=== PATIENT | female | born 1940 | race Two or more races ===

== ENCOUNTER 2025-03-08 10:02 | Inpatient (IN) | payer OTHER ==
[2025-03-08] VITALS (25 sets, daily range): BP systolic 101–124; BP diastolic 40–55; PULSE 69–90; RESP 10–22; TEMP 98.3–99.4; O2SAT 95–100
[~2025-03-08] VITALS: Ht 167.6 cm; Wt 74.5 kg
[2025-03-08] MEDS: LACTATED RINGER'S 1,700 ML IV ONE (10:30)
[2025-03-08] MEDS: VANCOMYCIN 1GM/200ML PM 200 ML IV ONE (10:30)
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
--- NOTE | 2025-03-08 11:05 | DVH ---
CHEST RADIOGRAPH Indication: weakness Technique: Single frontal view of the chest was obtained COMPARISON: None FINDINGS: Lines and Tubes: Right chest port in satisfactory position Lungs: Clear Pleura: No effusion. No pneumothorax. Cardiomediastinal contours: Unremarkable Bones: Unremarkable IMPRESSION: No acute disease.
[2025-03-08] MEDS: CEFEPIME 1GM/ 50ML 50 ML IV ONE (11:15)
[2025-03-08 11:23] LABS: Alanine Aminotransferase 10 U/L (7-40); Albumin 3.4 g/dL (3.2-4.8); Anion Gap 12 (5-15); BUN/Creatinine Ratio 33.9 (10.0-20.0); Bilirubin, Total 0.9 mg/dL (0.2-1.0); Blood Urea Nitrogen 20 mg/dL (9-23); Carbon Dioxide 22 mmol/L (20-31); Chloride 105 mmol/L (98-107); Potassium 4.0 mmol/L (3.5-5.1); Sodium 139 mmol/L (136-145)
[2025-03-08 11:24] LABS: Alkaline Phosphatase 125 U/L (46-116); Calcium 8.2 mg/dL (8.7-10.4); Glucose 139 mg/dL (74-106); Total Protein 4.8 g/dL (5.7-8.2)
[2025-03-08 11:31] LABS: Lactic Acid w/Reflex 3.1 mmol/L (0.4-2.0)
--- NOTE | 2025-03-08 12:03 | DVH ---
EXAM: CT HEAD WITHOUT CONTRAST INDICATION: Hypotension TECHNIQUE: CT of the head without intravenous contrast. Coronal and sagittal reformatted images are s ubmitted. Radiation Dose : 1. Head: CT Dose: CTDI volume is 51.5 mGy. Dose-length product is 1013.6 mGy*cm The dose indicators for CT are the volume Computed Tomography (CT) Dose Index (CTDIvol) and the Dose Length Product (DLP), and are measured in units of mGy and mGy-cm, respectively. These indicators are not patient dose, but values generated from the CT scanner acquisition factors. The report includes radiation exposure data for exposures received during this examination. All CT scans at this medical facility are performed using dose modulation techniques as appropriate to a performed exam including the following: Automated exposure control was utilized; adjustment of the MA and/or KV according to patient size; and use of iterative reconstruction technique. COMPARISON: None FINDINGS: There is no evidence of acute intracranial hemorrhage, extra-axial collection, mass effect, midline s hift, herniation or hydrocephalus. 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 The ventricles, sulci and cisterns are age appropriate. The snowden-white differentiation is intact. The visualized paranasal sinuses and mastoid air cells are clear. No depressed calvarial fracture. The surrounding soft tissues are unremarkable. IMPRESSION: 1. No acute intracranial abnormality. 2. 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 MRI of the brain without and wit h intravenous contrast with MRA brain is suggested for further evaluation.
[2025-03-08] MEDS: NOREPINEPHRINE 8 MG/250ML KIT 250 ML IV SCH (13:00)
[2025-03-08 13:31] LABS: Hematocrit 17.6 % (36.0-46.0); Mean Corpuscular Hemoglobin 31.6 pg (28.0-32.0); Mean Corpuscular Volume 94.6 fL (80.0-100.0)
[2025-03-08 13:36] LABS: Hemoglobin 5.9 g/dL (12.2-16.2)
[2025-03-08 13:42] LABS: INR 1.34 (0.9-1.15); Partial Thromboplastin Time 25.7 SEC (24.5-34.5); Prothrombin Time 13.8 sec (9.3-11.8)
[2025-03-08 14:14] LABS: Total Cells Counted 100.0 (100)
[2025-03-08] MEDS: HYDROcodone-ACET 10/325MG TAB PO ONE (15:00)
[2025-03-08] MEDS ORDERED: ASPI1TAB20 PO (15:55)
[2025-03-08] MEDS ORDERED: ATOR20TA50 PO (15:55)
[2025-03-08] MEDS ORDERED: SENN8.6T83 PO (15:55)
[2025-03-08] MEDS ORDERED: METO-159 PO (15:55)
[2025-03-08] MEDS ORDERED: DEX4T PO (15:55)
[2025-03-08] MEDS ORDERED: HYDR-4072 PO (15:55)
[2025-03-08] MEDS ORDERED: VER240ST PO (15:57)
[2025-03-08] MEDS ORDERED: ACETAMINOPHEN 325 MG TAB PO PRN (16:00)
[2025-03-08] MEDS ORDERED: DOCUSATE SOD 100 MG CAP PO PRN (16:00)
[2025-03-08] MEDS ORDERED: NITROGLYCERIN 0.4 MG SL TAB SL PRN (16:00)
[2025-03-08] MEDS ORDERED: MORPHINE SULFATE INJ 2 MG/ml SYRG IV PRN ×2 (16:00)
--- NOTE | 2025-03-08 16:42 | DVHHP2 ---
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 Patient states she last received chemotherapy on Thursday02/27/2025. Since then she has been progressively worsening. She has been experiencing intermittent diarrhea, that she has been self treating with over the counter medications. She has also been becoming progressively weaker and having a hard time getting out of bed due to weakness and her left hip injury. Last night she began having severe diarrhea and noticed there was blood in her stool. Her daughter helped her to get cleaned up, but ended up calling EMS due to the patient feeling dizzy, weak, and having a low BP. Patient was scheduled to go to [facility] for pre-op testing today to have surgery on Thursday to fix her left hip. Heme/Onc: Cancer (breast with mets to bone) Past Surgical History: Hysterectomy, Mastectomy (left), Other (Left hip x 2, Left arm, right arm), Total knee replacement (right) Smoke: No ALCOHOL: none Drugs: None Lives: Alone (has family there with her almost all day) Domestic Violence: Neg Review of Systems Constitutional: Yes: Weakness, Malaise; No: Fever, Chills, Sweats, Other Eyes: No: Pain, Vision change, Conjunctivae inflammation, Eyelid inflammation, Other, Redness ENT: No: Ear pain, Ear discharge, Nose pain, Nose discharge, Nose congestion, Mouth pain, Mouth swelling, Throat pain, Throat swelling, Other Respiratory: No: Cough, Dry, Shortness of breath, SOB with excertion, Wheezing, Hemoptysis, Pleuritic Pain, Sputum, Wheezing, Other Cardiovascular: No: Chest Pain, Palpitations, Orthopnea, Paroxysmal Noc. Dyspnea, Edema, Lt Headedness, Other Gastrointestinal: Diarrhea, Melena; No: Nausea, Vomiting, Abdominal Pain, Constipation, Hematochezia, Other Genitourinary: No Dysuria, No Frequency, No Incontinence, No Hematuria, No Retention, No Other Musculoskeletal: No: other, neck pain, shoulder pain, arm pain, back pain, hand pain, leg pain, foot pain Skin: No: Rash, Lesions, Jaundice, Bruising, Other Neurological: No: Weakness, Numbness, Incoordination, Change in speech, Confusion, Seizures, Other Allergies: Coded Allergies: Morphine (Verified Allergy, Unknown, 03/08/25) Medications Current Medications Medications Dose Ordered Sig/Emigdio Route Start Time Stop Time Status Last Admin Dose Admin Cefepime HCl 50 ml @ 12.5 mls/hr Q12HR IV 03/08/25 22:00 Norepinephrine Bitartrate 250 ml @ 3.75 mls/hr Q24H IV 03/08/25 12:45 Ondansetron HCl 4 mg Q4HP PRN IV 03/08/25 16:00 UNV Docusate Sodium 100 mg BIDPRN PRN PO 03/08/25 16:00 UNV Acetaminophen 650 mg Q6HP PRN PO 03/08/25 16:00 UNV Morphine Sulfate 2 mg Q4HPRN PRN IV 03/08/25 16:00 UNV Nitroglycerin 0.4 mg Q5MINP PRN SL 03/08/25 16:00 UNV Morphine Sulfate 2 mg Q30M PRN IV 03/08/25 16:00 UNV Atorvastatin Calcium 20 mg HS PO 03/08/25 22:00 UNV Dexamethasone 16 mg HS PO 03/08/25 22:00 UNV Acetaminophen/ Hydrocodone Bitart 1 tab Q12HP PRN PO 03/08/25 16:00 UNV Exam Vital Signs Vital Signs Date Time Temp Pulse Resp B/P (MAP) Pulse Ox O2 Delivery O2 Flow Rate FiO2 03/08/25 13:13 80 18 88/32 (50) 100 03/08/25 11:15 98.7 98.7 03/08/25 10:54 Nasal Cannula* 2 28 General Appearance: Alert, Oriented X3, Cooperative, mild distress HEENT: Atraumatic, PERRLA Respiratory: Clear to auscultation, Normal air movement Cardiovascular: Regular rate, Normal S1, Normal S2, Other (hypootensive-on Levophed, right chest port a cath) Abdominal: Normal bowel sounds, Soft, No tenderness Extremities: No clubbing, No cyanosis, No edema, Normal pulses, No tenderness/swelling Skin: No rashes, No breakdown, No significant lesion Neuro: Normal speech, Other (Generalized weakness ) Psych/Mental Status: Mental status NL, Mood NL Labs/Xrays Labs Test 03/08/25 13:11 03/08/25 10:41 03/08/25 10:36 Range/Units White Blood Count 19.9 H 4.4-10.8 10^3/uL Red Blood Count 1.86 L 4.0-5.20 10^6/uL Hemoglobin 5.9 *L 12.2-16.2 g/dL Hematocrit 17.6 L 36.0-46.0 % Mean Corpuscular Volume 94.6 80.0-100.0 fL Mean Corpuscular Hemoglobin 31.6 28.0-32.0 pg Mean Corpuscular Hemoglobin Concent 33.4 32.0-36.0 g/dL Red Cell Distribution Width 14.9 H 11.8-14.3 % Platelet Count 137 L 140-450 10^3/uL Mean Platelet Volume 8.7 6.9-10.8 fL Neutrophils (%) (Auto) 37.0-80.0 % Lymphocytes (%) (Auto) 10.0-50.0 % Monocytes (%) (Auto) 0.0-12.0 % Basophils (%) (Auto) 0.0-2.0 % Neutrophils # (Auto) 1.6-8.6 10 ^3/uL Lymphocytes # (Auto) 0.4-5.4 10 ^3/uL Monocytes # (Auto) 0-1.3 10 ^3/uL Differential Total Cells Counted 100.0 100 Neutrophils % (Manual) 81 H 37.0-80.0 Band Neutrophils % (Manual) 11 Lymphocytes % (Manual) 4 L 10.0-50.0 Monocytes % (Manual) 3 0-12 Eosinophils % (Manual) 0 0-7 Basophils % (Manual) 0 0.0-2.0 Metamyelocytes % (manual) 1 Myelocytes % (Manual) 0 Promyelocytes % (Manual) 0 Blast Cells % (Manual) 0 Reactive Lymphocytes 0 Platelet Estimate Decreased Prothrombin Time 13.8 H 9.3-11.8 sec Prothrombin Time INR 1.34 H 0.9-1.15 Activated Partial Thromboplast Time 25.7 24.5-34.5 SEC Lactic Acid Level 1.3 0.4-2.0 mmol/L POC Glucose 140 H 70-106 mg/dl Sodium Level 139 136-145 mmol/L Potassium Level 4.0 3.5-5.1 mmol/L Chloride Level 105 98-107 mmol/L Carbon Dioxide Level 22 20-31 mmol/L Anion Gap 12 5-15 Blood Urea Nitrogen 20 9-23 mg/dL Creatinine 0.59 0.550-1.02 mg/dL Glomerular Filtration Rate Calc 90 >90 mL/min BUN/Creatinine Ratio 33.9 H 10.0-20.0 Serum Glucose 139 H 74-106 mg/dL Calcium Level 8.2 L 8.7-10.4 mg/dL Total Bilirubin 0.9 0.2-1.0 mg/dL Aspartate Amino Transferase (AST) 25 13-40 U/L Alanine Aminotransferase (ALT) 10 7-40 U/L Alkaline Phosphatase 125 H 46-116 U/L Total Protein 4.8 L 5.7-8.2 g/dL Albumin 3.4 3.2-4.8 g/dL CHEST RADIOGRAPH FINDINGS: Lines and Tubes: Right chest port in satisfactory position Lungs: Clear Pleura: No effusion. No pneumothorax. Cardiomediastinal contours: Unremarkable Bones: Unremarkable IMPRESSION: No acute disease. EXAM: CT HEAD WITHOUT CONTRAST FINDINGS: There is no evidence of acute intracranial hemorrhage, extra-axial collection, mass effect, midline shift, herniation or hydrocephalus. 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 The ventricles, sulci and cisterns are age appropriate. The snowden-white differentiation is intact. The visualized paranasal sinuses and mastoid air cells are clear. No depressed calvarial fracture. The surrounding soft tissues are unremarkable. IMPRESSION: 1. No acute intracranial abnormality. 2. 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 MRI of the brain without and with intravenous contrast with MRA brain is suggested for further evaluation. SEPSIS Sepsis Screen Date sepsis recognized/suspect: Mar 08, 2025 Time Sepsis recognized/suspect: 1005 Recent Procedure: No On Antibiotic Therapy: No Respiratory Rate >20: No Heart Rate >90: Yes Temp<36 C (96.8 F) or >38.3 C: No SBP <90 or MAP <65 mmHG: Yes New Acute Mental Status Change: No Is the patient on CPAP, BIPAP,: No Physician Orders Urinalysis (03/08/25 10:12) Chest Portable (03/08/25 10:12) Accucheck (03/08/25 10:12) Blood Culture (03/08/25 10:12) Cefepime 1gm/ 50ml (Maxipime 1gm/50ml) (03/08/25 22:00) Notify Md If Map <65 Or Bp<90 (03/08/25 10:12) If Map<65 Start Vasopressor (03/08/25 10:12) Sepsis Reassesment After Fluid (03/08/25 11:12) Electrocardigram (03/08/25 10:29) Head Without Contrast (03/08/25 11:15) Norepinephrine 8 Mg/250ml Kit (Levophed) (03/08/25 12:45) Type And Screen (03/08/25 13:38) Admit (03/08/25 15:46) Code Status (03/08/25 15:46) Ondansetron Hcl (Zofran) (03/08/25 16:00) Docusate Sodium Capsule (Colace Capsule) (03/08/25 16:00) Fall Risk Precautions In Place QSHIFT (03/08/25 15:46) Complete Blood Count (03/09/25 04:00) Comprehensive Metabolic Panel (03/09/25 04:00) Condition: Critical (03/08/25 15:46) Acetaminophen Tablet (Tylenol Tablet) (03/08/25 16:00) Morphine Sulfate Injection (03/08/25 16:00) Nitroglycerin Sublingual (Ntrostat Subli (03/08/25 16:00) Morphine Sulfate Injection (03/08/25 16:00) Stat Ekg For Chest Pain (03/08/25 15:46) Notify Md Of Changes From Base (03/08/25 15:46) Coding Machine Operator For 24 Hours (03/08/25 15:46) Emergency Dysrhythmia Protocol (03/08/25 15:46) Rhythm Strips Once Every Shift (03/08/25 15:46) Oxygen By Nasal Cannula (03/08/25 15:46) Regular Diet (03/08/25 Dinner) Stool Occult Blood (03/08/25 15:46) * Gi Dvh Finisher Hot Strip (03/08/25 15:46) Atorvastatin (Lipitor) (03/08/25 22:00) Dexamethasone Tablet (Decadron Tablet) (03/08/25 22:00) Hydrocodone-Acet 10/325mg Tab ([place] 10/ (03/08/25 16:00) Vital Signs Date Time Temp Pulse Resp B/P (MAP) Pulse Ox O2 Delivery O2 Flow Rate FiO2 03/08/25 13:13 80 18 88/32 (50) 100 03/08/25 13:00 79 18 93/46 (62) 100 03/08/25 12:00 82 03/08/25 11:28 94/43 (60) 03/08/25 11:15 98.7 81 15 98/36 (56) 100 98.7 03/08/25 10:54 84 10 95 Nasal Cannula* 2 28 03/08/25 10:50 98.5 84 10 89/40 (56) 93 98.5 03/08/25 10:23 97.9 97 16 76/45 97 97.9 03/08/25 10:10 99 Laboratory Tests Test 03/08/25 10:36 03/08/25 13:11 Lactic Acid Level 3.1 mmol/L (0.4-2.0) *H 1.3 mmol/L (0.4-2.0) White Blood Count 19.9 10^3/uL (4.4-10.8) H Medications Medications Dose Ordered Sig/Emigdio Route Start Time Stop Time Status Last Admin Dose Admin Cefepime HCl 50 ml @ 50 mls/hr ONCE ONCE IV 03/08/25 10:45 03/08/25 11:44 DC 03/08/25 11:15 50 MLS/HR Lactated Ringer's 1,700 ml @ 1,700 mls/hr ONCE ONCE IV 03/08/25 10:15 03/08/25 11:14 DC 03/08/25 10:30 1,700 MLS/HR Vancomycin HCl 200 ml @ 200 mls/hr ONCE ONCE IV 03/08/25 10:15 03/08/25 11:14 DC 03/08/25 10:30 200 MLS/HR Assessment/Plan Assessment/Plan Assessment: Severe anemia, Hypotension, Possible GI bleed, Leukocytosis, Cancer, Plan: Admit to ICU, GI consult, Transfuse 2 units PRBC, Manage/Monitor H&H closely, Vasopressors as needed, IV hydration, Stool for occult blood, Home medications reconciled, Plan discussed with: Patient, Daughter My Orders Orders - JAMES RICHARDS MANAGER ENVIRONMENTAL AFFAIRS Procedure Category Date Status Time Admit ADMIT 03/08/25 Transmitted 15:46 Code Status CODE 03/08/25 Transmitted 15:46 Ondansetron Hcl [facility] 03/08/25 Logged (Zofran) 16:00 Docusate Sodium [facility] 03/08/25 Logged Capsule (Colace 16:00 Fall Risk Precautions [facility] 03/08/[address] 15:46 Complete Blood Count LAB 03/09/25 Verified 04:00 Comprehensive LAB 03/09/25 Verified Metabolic Panel 04:00 Condition: Critical [facility] 03/08/25 In Process 15:46 Acetaminophen Tablet [facility] 03/08/25 Logged (Tylenol Tablet) 16:00 Morphine Sulfate [facility] 03/08/25 Logged Injection 16:00 Nitroglycerin [facility] 03/08/25 Logged Sublingual (Ntrostat 16:00 Morphine Sulfate [facility] 03/08/25 Logged Injection 16:00 Stat Ekg For Chest [facility] 03/08/25 In Process Pain 15:46 Notify Of Changes [facility] 03/08/25 In Process From Base 15:46 Coding Machine Operator For [facility] 03/08/25 In Process 24 Hours 15:46 Emergency Dysrhythmia [facility] 03/08/25 In Process Protocol 15:46 Rhythm Strips Once [facility] 03/08/25 In Process Every Shift 15:46 Oxygen By Nasal RT 03/08/25 Transmitted Cannula 15:46 Regular Diet DIET 03/08/25 Transmitted Dinner Stool Occult Blood LAB 03/08/25 Logged 15:46 * Gi Dvh Finisher Hot Strip CONS 03/08/25 Transmitted 15:46 Atorvastatin (Lipitor) [facility] 03/08/25 Logged 22:00 Dexamethasone Tablet [facility] 03/08/25 Logged (Decadron Tablet) 22:00 Hydrocodone-Acet [facility] 03/08/25 Logged 10/325mg Tab ([place] 16:00 Date of Service: Mar 08, 2025 Billing Provider: JAMES RICHARDS Common Visit Codes: [id number] INP/OBS CARE (MOD) JAMES RICHARDS MANAGER ENVIRONMENTAL AFFAIRS Mar 08, 2025 16:42
[2025-03-08 16:46] LABS: Urine Protein, UAD 1+ (Negative)
[2025-03-08] MEDS: ATORVASTATIN 20 MG TAB PO SCH (21:22)
[2025-03-08] MEDS: HYDROcodone-ACET 10/325MG TAB PO PRN (22:03)
[2025-03-08] MEDS: CEFEPIME 1GM/ 50ML 50 ML IV SCH (22:03)
[2025-03-09] VITALS (103 sets, daily range): BP systolic 86–137; BP diastolic 36–69; PULSE 64–171; RESP 10–22; TEMP 97–99.1; O2SAT 99–100
[2025-03-09 02:15] LABS: Hematocrit 25.6 % (36.0-46.0); Hemoglobin 8.8 g/dL (12.2-16.2); Mean Corpuscular Hemoglobin 31.2 pg (28.0-32.0); Mean Corpuscular Volume 90.8 fL (80.0-100.0)
[2025-03-09 02:26] LABS: Albumin 3.2 g/dL (3.2-4.8); Anion Gap 7 (5-15); BUN/Creatinine Ratio 25.8 (10.0-20.0); Carbon Dioxide 25 mmol/L (20-31); Chloride 106 mmol/L (98-107); Sodium 138 mmol/L (136-145)
[2025-03-09 02:30] LABS: Total Cells Counted 100.0 (100)
[2025-03-09 02:32] LABS: Alanine Aminotransferase 9 U/L (7-40); Alkaline Phosphatase 124 U/L (46-116); Bilirubin, Total 1.3 mg/dL (0.2-1.0); Blood Urea Nitrogen 8 mg/dL (9-23); Calcium 7.6 mg/dL (8.7-10.4); Glucose 139 mg/dL (74-106); Potassium 3.2 mmol/L (3.5-5.1); Total Protein 4.8 g/dL (5.7-8.2)
[2025-03-09] MEDS: POTASSIUM CHL 20 Meq TABLET PO ONE (05:32)
[2025-03-09] MEDS: POTASSIUM EFFERVESENT TAB 25 MEQ PO ONE (05:49)
[2025-03-09] MEDS: METOPROLOL TARTRATE 1MG/1ML-5ML VIAL IV ONE ×3 (12:27→14:24)
[2025-03-09] MEDS: AMIODARONE 360mg/200mL PREMIX 200 ML IV ONE (12:28)
[2025-03-09] MEDS: AMIODARONE BOLUS KIT 100 ML IV ONE (12:28)
--- NOTE | 2025-03-09 13:58 | DVHPN2 ---
Subjective 84-year-old female with a history of breast cancer metastatic to the bone came with chief complaint of rectal bleeding She was tachycardic She was anemic with a hemoglobin of 5.9 and was given 2 units of blood which raised the 28.8 today She was tachycardic this morning heart rate 170 she was given metoprolol IV and started on amiodarone IV and IV fluids Currently heart rate is 150 Changes from previous H/P or p: Changes Eyes: No Pain, No Vision change, No Conjunctivae inflammation, No Eyelid inflammation, No Other, No Redness ENT: No Ear pain, No Ear discharge, No Nose pain, No Nose discharge, No Nose congestion, No Mouth pain, No Mouth swelling, No Throat pain, No Throat swelling, No Other Cardiovascular: No Chest Pain, No Palpitations, No Orthopnea, No Paroxysmal Noc. Dyspnea, No Edema, No Lt Headedness, No Other Respiratory: No Cough, No Dry, No Shortness of breath, No SOB with excertion, No Wheezing, No Hemoptysis, No Pleuritic Pain, No Sputum, No Other Gastrointestinal: No Nausea, No Vomiting, No Abdominal Pain; Diarrhea; No Constipation; Melena; No Hematochezia, No Other Genitourinary: No Dysuria, No Frequency, No Incontinence, No Hematuria, No Retention, No Other Musculoskeletal: No other, No neck pain, No shoulder pain, No arm pain, No back pain, No hand pain, No leg pain, No foot pain Skin: No Rash, No Lesions, No Jaundice, No Bruising, No Other Objective Vitals Vital Signs Date Time Temp Pulse Resp B/P (MAP) Pulse Ox O2 Delivery O2 Flow Rate FiO2 03/09/25 13:00 85 17 109/56 (73) 100 03/09/25 11:45 98.3 98.3 03/09/25 08:00 Nasal Cannula* 2 28 Intake/Output Intake and Output 03/09/25 06:59 Intake Total 3526.28 ml Output Total 0 ml Balance 3526.28 ml Intake Oral 375 ml IV Total 2251.28 ml Blood Product 600 ml Other 300 ml Output Urine Total 0 ml # Voids 3 General Appearance: Alert, Oriented X3, Cooperative, No acute distress Lungs: Clear to auscultation Chest/Breasts: Discharge, Lesions, Lumps Cardiovascular: Regular rate, Normal S1, Normal S2, Other (Tachycardic) Extremities: No edema Medications Current Medications Medications Dose Ordered Sig/Emigdio Route Start Time Stop Time Status Last Admin Dose Admin Cefepime HCl 50 ml @ 12.5 mls/hr Q12HR IV 03/08/25 22:00 03/09/25 09:09 12.5 MLS/HR Norepinephrine Bitartrate 250 ml @ 3.75 mls/hr Q24H IV 03/08/25 12:45 03/09/25 04:21 7.5 MLS/HR Ondansetron HCl 4 mg Q4HP PRN IV 03/08/25 16:00 Docusate Sodium 100 mg BIDPRN PRN PO 03/08/25 16:00 Acetaminophen 650 mg Q6HP PRN PO 03/08/25 16:00 Morphine Sulfate 2 mg Q4HPRN PRN IV 03/08/25 16:00 Hold Nitroglycerin 0.4 mg Q5MINP PRN SL 03/08/25 16:00 Morphine Sulfate 2 mg Q30M PRN IV 03/08/25 16:00 Hold Atorvastatin Calcium 20 mg HS PO 03/08/25 22:00 03/08/25 21:22 20 MG Dexamethasone 16 mg HS PO 03/08/25 22:00 03/08/25 21:22 16 MG Acetaminophen/ Hydrocodone Bitart 1 tab Q12HP PRN PO 03/08/25 16:00 03/09/25 11:11 1 TAB Sodium Chloride 1,000 ml @ 100 mls/hr Q10H IV 03/09/25 13:00 UNV Laboratory Results Laboratory Tests 03/09/25 01:31 Chemistry Test 03/09/25 01:31 Albumin 3.2 g/dL (3.2-4.8) Calcium Level 7.6 mg/dL (8.7-10.4) L Total Protein 4.8 g/dL (5.7-8.2) L LFT Test 03/09/25 01:31 Alanine Aminotransferase (ALT) 9 U/L (7-40) Alkaline Phosphatase 124 U/L (46-116) H Aspartate Amino Transferase (AST) 20 U/L (13-40) Total Bilirubin 1.3 mg/dL (0.2-1.0) H Urinalysis Test 03/08/25 13:15 Urine Color Light-yellow (Yellow) Urine Clarity Turbid (Clear) H Urine pH 6.0 (5.0-9.0) Urine Specific [employer] 1.024 (1.001-1.035) Urine Protein 1+ (Negative) H Urine Ketones 1+ (Negative) H Urine Blood 2+ /uL (Negative) H Urine Nitrite Negative (Negative) Urine Bilirubin Negative (Negative) Urine Urobilinogen Normal mg/dL (Negative) Urine Leukocyte Esterase 1+ /uL (Negative) Urine RBC 15 /hpf (0 - 4) Urine Microscopic WBC 69 /HPF (0-5) H Urine Squamous Epithelial Cells Few /hpf (<5) Urine Bacteria None seen /hpf (None Seen) Urine Glucose 1+ mg/dL (Normal) H Microbiology Microbiology Date/Time Source Procedure Growth Status 03/09/25 06:10 Nose MRSA Screen - Final Complete 03/08/25 10:36 Blood Blood Culture - Preliminary NO GROWTH AFTER 24 HOURS OF INCUBATION. Resulted Assessment/Plan Assessment/Plan Rectal bleeding Acute anemia Rule out sepsis Breast cancer metastatic to the bone Supraventricular tachycardia Possible septic shock Leukocytosis Hypotension Hypokalemia Plan The patient was transfuse 2 units RBCs Keep in ICU Bolus IV fluids and normal saline maintenance IV fluids Levophed as needed Give a 2nd dose of metoprolol IV 5 mg Restart her home medications metoprolol and verapamil Cardiology consult Echocardiogram GI consult Broad-spectrum IV antibiotics Continue dexamethasone home dose [place] p.r.n[employer] for the pain Replace potassium as needed Full code Discussed with the daughter at the bedside Advance directives discussed for 19 minutes Plan discussed with: Patient My Orders Orders - DAWIT HASSAN MD Procedure Category Date Status Time * Cardiology Consult CONS 03/09/25 Transmitted 12:21 Sodium Chloride 0.9% PHA 03/09/25 Logged 13:00 Metoprolol Inj PHA 03/09/25 Logged (Lopressor) 13:45 Date of Service: Mar 09, 2025 Billing Provider: DAWIT HASSAN MD Common Visit Codes: [id number] CARE 30-74 MIN Secondary Visit Codes: [id number] CARE PLAN 30 MINUTES DAWIT HASSAN MD Mar 09, 2025 13:58
[2025-03-09] MEDS: SODIUM CHLORIDE 0.9% 1,000 ML IV SCH (14:00)
--- NOTE | 2025-03-09 14:19 | DVHINCON2 ---
Date Seen: Mar 09, 2025 Referring Physician MD Malina Reason for Consultation Heart rate sustaining 170s History of Present Illness This is an 84-year-old female patient who presents to the emergency room with chief complaint of dizziness, nausea and diarrhea for one day prior to emergency room arrival. Cardiology has been consulted at this time for rhythm change on monitor. Initial twelve lead electrocardiogram done upon emergency room arrival revealed the patient was in normal sinus rhythm with right bundle branch block. The patient was noted to go into a tachycardia with heart rate sustaining 170s on the monitor. The bedside RN obtained a new twelve lead electrocardiogram at that time which revealed a wide complex tachycardia with underlying right bundle branch block. Electrocardiogram reviewed with nuclear plant equipment operator, likely junctional tachycardia versus SVT. The emergency room physician started the patient on an amiodarone bolus with amiodarone drip. By the time of cardio consultation, the patient was reverted back into a normal sinus rhythm with underlying right bundle branch block. 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 The patient reports she is currently undergoing chemotherapy as well as radiati on. She reports her last radiation was on February 11, 2025. She states that she received her last chemotherapy approximately 1.5 weeks ago. Past Medical History Past medical history reviewed. No other significant than mentioned above. Past Surgical History Total hysterectomy Left mastectomy Bilateral breast implants Right knee replacement Family History Family history reviewed. Social History Patient has a 40 pack-year history, quit smoking approximately 25 years ago Denies any illicit drug use Denies any alcohol use Allergies: Coded Allergies: Morphine (Verified Allergy, Unknown, 03/08/25) Home Meds Reported Medications Verapamil Hcl (Calan Sr) 240 Mg Cp, 1 CAP PO DAILY 03/08/25 Senna (Senna-Time) 8.6 Mg Tab, 1 TAB PO BIDP PRN 03/08/25 Aspirin (Aspir-81) 81 Mg Tab, 1 TAB PO DAILY, #30 TAB 5 Refills 03/08/25 Dexamethasone (Decadron) 4 Mg Tb, 4 TAB PO HS, #8 TAB 03/08/25 Atorvastatin Calcium (ATORVASTATIN CALCIUM) 20 Mg Tab, 1 TAB PO HS 03/08/25 Metoprolol Tartrate (Metoprolol Tartrate) 100 Mg Tab, 1 TAB PO BID 03/08/25 Hydrocodone-Acetaminophen (Hydrocodone/Acetaminophen 10-325 mg) 1 Tab Tab, 1 TAB PO Q12HP PRN, TAB 03/08/25 Home Meds Home medications reviewed. Current Medications Current Medications Medications (Trade) Dose Ordered Sig/Emigdio Route PRN Reason Start Time Stop Time Status Last Admin Cefepime HCl 50 ml @ 12.5 mls/hr Q12HR IV 03/08/25 22:00 03/09/25 09:09 Ondansetron HCl (Zofran) 4 mg Q4HP PRN IV NAUSEA / VOMITING 03/08/25 16:00 Docusate Sodium (Colace Capsule) 100 mg BIDPRN PRN PO FOR CONSTIPATION 03/08/25 16:00 Acetaminophen (Tylenol Tablet) 650 mg Q6HP PRN PO PAIN SCALE 1-3 OR TEMP>100.4 03/08/25 16:00 Morphine Sulfate 2 mg Q4HPRN PRN IV SEVERE PAIN (7-10 PAIN SCALE) 03/08/25 16:00 Hold Nitroglycerin (Ntrostat Sublingual) 0.4 mg Q5MINP PRN SL FOR CHEST PAIN 03/08/25 16:00 Morphine Sulfate 2 mg Q30M PRN IV FOR CHEST PAIN 03/08/25 16:00 Hold Atorvastatin Calcium (Lipitor) 20 mg HS PO 03/08/25 22:00 03/08/25 21:22 Dexamethasone (Decadron Tablet) 16 mg HS PO 03/08/25 22:00 03/08/25 21:22 Acetaminophen/ Hydrocodone Bitart ([place]ston 10/325MG Tab) 1 tab Q12HP PRN PO PAIN SCALE 1 THRU 6 03/08/25 16:00 03/09/25 11:11 Sodium Chloride 1,000 ml @ 100 mls/hr Q10H IV 03/09/25 13:00 UNV Metoprolol Tartrate (Lopressor Tablet) 50 mg BID PO 03/09/25 22:00 UNV Verapamil HCl (Calan Sr) 240 mg HS PO 03/09/25 22:00 UNV Review of Systems Constitutional: Generalized weakness Ears, Nose, & Throat: No symptom reported Eyes: No symptom reported Neurological: No symptoms reported Pulmonary/Respiratory: No symptoms reported Cardiovascular: No symptom reported Gastrointestinal: Diarrhea, nausea Genitourinary: No symptom reported Musculoskeletal: No symptom reported Skin: No symptom reported Psychiatric: No symptom reported Endocrine: No symptom reported Hematologic/Lymphatic: No symptom reported Vital Signs Vital Signs Date Time Temp Pulse Resp B/P (MAP) Pulse Ox O2 Delivery O2 Flow Rate FiO2 03/09/25 14:09 155 03/09/25 14:00 15 101/41 (61) 100 03/09/25 11:45 98.3 98.3 03/09/25 08:00 Nasal Cannula* 2 28 Physical Exam General Appearance: Cooperative. Well-developed. Well-nourished. No acute dis tress. Pulmonary/Respiratory: Clear, bilateral breaths sounds. Cardiovascular/Chest: Regular rate and rhythm. Peripheral Pulses: 2+ Radial (R). 2+ Radial (L). 2+ Pedal (R). 2+ Pedal (L) Abdominal Exam: Normal bowel sounds. Ankle Exam: Negative ankle edema Lower extremities: Negative lower extremity edema Neuro/Mental Status: A/OX4, coherent. Thoughts/Psych: Normal thought pattern. Appropriate mood and affect. Good judgment and insight. Appearance: No acute distress. Skin Exam: Normal inspection. Normal color. Warm and dry. Labs/Diagnostic Data Labs Test 03/09/25 01:31 03/08/25 13:15 03/08/25 13:11 03/08/25 10:41 Range/Units White Blood Count 15.1 H 4.4-10.8 10^3/uL Red Blood Count 2.82 L 4.0-5.20 10^6/uL Hemoglobin 8.8 #L 12.2-16.2 g/dL Hematocrit 25.6 #L 36.0-46.0 % Mean Corpuscular Volume 90.8 # 80.0-100.0 fL Mean Corpuscular Hemoglobin 31.2 28.0-32.0 pg Mean Corpuscular Hemoglobin Concent 34.3 32.0-36.0 g/dL Red Cell Distribution Width 15.1 H 11.8-14.3 % Platelet Count 150 140-450 10^3/uL Mean Platelet Volume 9.0 6.9-10.8 fL Neutrophils (%) (Auto) 37.0-80.0 % Lymphocytes (%) (Auto) 10.0-50.0 % Monocytes (%) (Auto) 0.0-12.0 % Basophils (%) (Auto) 0.0-2.0 % Neutrophils # (Auto) 1.6-8.6 10 ^3/uL Lymphocytes # (Auto) 0.4-5.4 10 ^3/uL Monocytes # (Auto) 0-1.3 10 ^3/uL Differential Total Cells Counted 100.0 100 Neutrophils % (Manual) 93 H 37.0-80.0 Band Neutrophils % (Manual) 3 Lymphocytes % (Manual) 2 L 10.0-50.0 Monocytes % (Manual) 1 0-12 Eosinophils % (Manual) 0 0-7 Basophils % (Manual) 0 0.0-2.0 Metamyelocytes % (manual) 0 Myelocytes % (Manual) 0 Promyelocytes % (Manual) 0 Blast Cells % (Manual) 0 Reactive Lymphocytes 1 Platelet Estimate Adequate Sodium Level 138 136-145 mmol/L Potassium Level 3.2 L 3.5-5.1 mmol/L Chloride Level 106 98-107 mmol/L Carbon Dioxide Level 25 20-31 mmol/L Anion Gap 7 5-15 Blood Urea Nitrogen 8 #L 9-23 mg/dL Creatinine 0.31 #L 0.550-1.02 mg/dL Glomerular Filtration Rate Calc 105 >90 mL/min BUN/Creatinine Ratio 25.8 H 10.0-20.0 Serum Glucose 139 H 74-106 mg/dL Calcium Level 7.6 L 8.7-10.4 mg/dL Total Bilirubin 1.3 H 0.2-1.0 mg/dL Aspartate Amino Transferase (AST) 20 13-40 U/L Alanine Aminotransferase (ALT) 9 7-40 U/L Alkaline Phosphatase 124 H 46-116 U/L Total Protein 4.8 L 5.7-8.2 g/dL Albumin 3.2 3.2-4.8 g/dL Urine Color Light-yellow Yellow Urine Clarity Turbid H Clear Urine pH 6.0 5.0-9.0 Urine Specific [place] 1.024 1.001-1.035 Urine Protein 1+ H Negative Urine Ketones 1+ H Negative Urine Blood 2+ H Negative /uL Urine Nitrite Negative Negative Urine Bilirubin Negative Negative Urine Urobilinogen Normal Negative mg/dL Urine Leukocyte Esterase 1+ Negative /uL Urine RBC 15 0 - 4 /hpf Urine Microscopic WBC 69 H 0-5 /HPF Urine Squamous Epithelial Cells Few <5 /hpf Urine Bacteria None seen None Seen /hpf Urine Glucose 1+ H Normal mg/dL Prothrombin Time 13.8 H 9.3-11.8 sec Prothrombin Time INR 1.34 H 0.9-1.15 Activated Partial Thromboplast Time 25.7 24.5-34.5 SEC Lactic Acid Level 1.3 0.4-2.0 mmol/L POC Glucose 140 H 70-106 mg/dl Microbiology Date/Time Source Procedure Growth Status 03/09/25 06:10 Nose MRSA Screen - Final Complete 03/08/25 10:36 Blood Blood Culture - Preliminary NO GROWTH AFTER 24 HOURS OF INCUBATION. Resulted Assessment Junctional tachycardia versus SVT Rule out structural heart disease Hemorrhagic versus septic shock Severe anemia status post PRBC transfusion Dyslipidemia Hypokalemia Metastatic breast cancer currently undergoing radiation and chemotherapy History of tobacco use Plan/Recommendation We will continue with the following plan/recommendations (Dr. Esqueda): * Transthoracic echocardiogram to evaluate cardiac function * Continue with beta-jason for rate control * Continue with antiarrhythmic agent amiodarone * Monitor and replete electrolytes as needed * Closely monitor hemoglobin and hematocrit levels, transfused with PRBC as needed * Close Cardiac surveillance Case discussed with . Thank you for allowing us to care for this patient. Please call with any questions or concerns. Critical care time spent: 44 minutes This medical document was created using an electronic medical record system with voice recognition software and computerized dictation system. Although this document has been carefully reviewed, there might still be some phonetic and typographical errors. Occasional wrong-word or ``sound-alike substitutions may have occurred due to the inherent limitations of voice recognition software. These areas are purely typographical due to imperfections of the software programs and do not reflect any compromise in the patient's medical care. Please read the chart carefully and recognize, using context, where these substitutions have occurred. Plan discussed with: Patient NYHA Physical activity limitations: NA Date of Service: Mar 09, 2025 Billing Provider: MARIELA RUSHING Cardiology Common Codes: [id number] INP/OBS CARE (High) Cardiology Consultation Codes: [id number] CONSULT <45MIN MARIELA RUSHING Mar 09, 2025 14:19
[2025-03-09 14:51] LABS: Hematocrit 26.6 % (36.0-46.0); Hemoglobin 9.0 g/dL (12.2-16.2)
[2025-03-09] MEDS: METOPROLOL TARTRATE 50 MG TAB PO ONE (15:21)
[2025-03-09 15:41] LABS: Magnesium 1.8 mg/dL (1.6-2.6); Triglycerides 148.0 mg/dL (< 150)
[2025-03-09 15:43] LABS: Cholesterol 80.0 mg/dL (< 200); HDL Cholesterol 18.0 mg/dL (40-59)
[2025-03-09] MEDS: AMIODARONE 360mg/200mL PREMIX 200 ML IV SCH (17:23)
[2025-03-09] MEDS: MAGNESIUM SULFATE 1GM/100ML 100 ML IV ONE (18:32)
[2025-03-09] MEDS: METOPROLOL TARTRATE 50 MG TAB PO SCH (21:21)
[2025-03-09] MEDS: VERAPAMIL HCL 120 mg ER tab PO SCH (22:00)
[2025-03-10] VITALS (75 sets, daily range): BP systolic 85–121; BP diastolic 38–63; PULSE 59–86; RESP 11–22; TEMP 97.8–98.3; O2SAT 97–100
[2025-03-10 04:31] LABS: Hematocrit 22.4 % (36.0-46.0); Hemoglobin 8.0 g/dL (12.2-16.2); Mean Corpuscular Hemoglobin 32.6 pg (28.0-32.0); Mean Corpuscular Volume 91.7 fL (80.0-100.0)
[2025-03-10 04:43] LABS: Alanine Aminotransferase 10 U/L (7-40); Albumin 3.3 g/dL (3.2-4.8); Alkaline Phosphatase 102 U/L (46-116); Anion Gap 7 (5-15); BUN/Creatinine Ratio 21.6 (10.0-20.0); Bilirubin, Total 0.9 mg/dL (0.2-1.0); Carbon Dioxide 27 mmol/L (20-31); Chloride 105 mmol/L (98-107); Magnesium 2.0 mg/dL (1.6-2.6); Potassium 4.0 mmol/L (3.5-5.1); Sodium 139 mmol/L (136-145)
[2025-03-10 04:51] LABS: Blood Urea Nitrogen 8 mg/dL (9-23); Calcium 7.8 mg/dL (8.7-10.4); Glucose 139 mg/dL (74-106); Total Protein 4.8 g/dL (5.7-8.2)
[2025-03-10 05:04] LABS: Nucleated Red Blood Cells % 1.0 %; Total Cells Counted 100.0 (100)
--- NOTE | 2025-03-10 09:11 | DVHPN2 ---
Consult Progress Note Subjective Other Systems: Patient in normal sinus rhythm with underlying right bundle branch block on environmental monitoring specialist at time of assessment. Objective vital signs Vital Sign Date Time Temp Pulse Resp B/P (MAP) Pulse Ox O2 Delivery O2 Flow Rate FiO2 03/10/25 06:30 65 14 105/48 (67) 100 03/10/25 04:15 98.1 98.1 03/09/25 20:00 Nasal Cannula* 2 28 Total Intake and Output 03/09/25 03/09/25 03/10/25 15:00 23:00 07:00 Intake Total 364.99 ml 1453.71 ml 1183.28 ml Balance 364.99 ml 1453.71 ml 1183.28 ml medications Current Medications Medications Dose Ordered Sig/Emigdio Route Start Time Stop Time Status Last Admin Dose Admin Cefepime HCl 50 ml @ 12.5 mls/hr Q12HR IV 03/08/25 22:00 03/09/25 21:20 12.5 MLS/HR Norepinephrine Bitartrate 250 ml @ 3.75 mls/hr Q24H IV 03/08/25 12:45 03/09/25 04:21 7.5 MLS/HR Ondansetron HCl 4 mg Q4HP PRN IV 03/08/25 16:00 Docusate Sodium 100 mg BIDPRN PRN PO 03/08/25 16:00 Acetaminophen 650 mg Q6HP PRN PO 03/08/25 16:00 Morphine Sulfate 2 mg Q4HPRN PRN IV 03/08/25 16:00 Hold Nitroglycerin 0.4 mg Q5MINP PRN SL 03/08/25 16:00 Morphine Sulfate 2 mg Q30M PRN IV 03/08/25 16:00 Hold Atorvastatin Calcium 20 mg HS PO 03/08/25 22:00 03/09/25 21:21 20 MG Dexamethasone 16 mg HS PO 03/08/25 22:00 03/09/25 21:40 16 MG Acetaminophen/ Hydrocodone Bitart 1 tab Q12HP PRN PO 03/08/25 16:00 03/09/25 21:22 1 TAB Sodium Chloride 1,000 ml @ 100 mls/hr Q10H IV 03/09/25 13:00 03/09/25 14:00 100 MLS/HR Metoprolol Tartrate 50 mg BID PO 03/09/25 22:00 03/09/25 21:21 50 MG Verapamil HCl 240 mg HS PO 03/09/25 22:00 Examination: GENERAL:Abnormal (Generalized weakness), LUNGS:Normal, CVS:Normal, NEURO:Normal laboratory and microbiology Laboratory Tests 03/10/25 03:49 Test 03/10/25 03:49 Range/Units Serum Glucose 139 H 74-106 mg/dL Problem List/Assessment/Plan Problem List/Assessment/Plan Junctional tachycardia versus SVT Rule out structural heart disease Hemorrhagic versus septic shock Severe anemia status post PRBC transfusion Dyslipidemia Hypokalemia Metastatic breast cancer currently undergoing radiation and chemotherapy History of tobacco use Plan/Recommendation (Dr. Esqueda): * Transthoracic echocardiogram to evaluate cardiac function * Continue with beta-jason for rate control * Continue with antiarrhythmic agent amiodarone; transitioned to oral * Monitor and replete electrolytes as needed * Closely monitor hemoglobin and hematocrit levels, transfuse with PRBC as needed * Obtain fecal occult * Close Cardiac surveillance Case discussed with . Thank you for allowing us to care for this patient. Please call with any questions or concerns. This medical document was created using an electronic medical record system with voice recognition software and computerized dictation system. Although this document has been carefully reviewed, there might still be some phonetic and typographical errors. Occasional wrong-word or ``sound-alike substitutions may have occurred due to the inherent limitations of voice recognition software. These areas are purely typographical due to imperfections of the software programs and do not reflect any compromise in the patient's medical care. Please read the chart carefully and recognize, using context, where these substitutions have occurred. Plan discussed with: Patient CC Plasma Assessment Blood Product Administration S: 1900 Date of Service: Mar 10, 2025 Billing Provider: MARIELA RUSHING Common Visit Codes: [id number] INP/OBS CARE(HIGH) MARIELA RUSHING Mar 10, 2025 09:11
[2025-03-10] MEDS: AMIODARONE HCL 200 MG TAB PO ONE (13:05)
--- NOTE | 2025-03-10 17:47 | DVHPN2 ---
Subjective Better HR 60s Hb 8.0 Changes from previous H/P or p: Changes Eyes: No Pain, No Vision change, No Conjunctivae inflammation, No Eyelid inflammation, No Other, No Redness ENT: No Ear pain, No Ear discharge, No Nose pain, No Nose discharge, No Nose congestion, No Mouth pain, No Mouth swelling, No Throat pain, No Throat swelling, No Other Cardiovascular: No Chest Pain, No Palpitations, No Orthopnea, No Paroxysmal Noc. Dyspnea, No Edema, No Lt Headedness, No Other Respiratory: No Cough, No Dry, No Shortness of breath, No SOB with excertion, No Wheezing, No Hemoptysis, No Pleuritic Pain, No Sputum, No Other Gastrointestinal: No Nausea, No Vomiting, No Abdominal Pain; Diarrhea; No Constipation; Melena; No Hematochezia, No Other Genitourinary: No Dysuria, No Frequency, No Incontinence, No Hematuria, No Retention, No Other Musculoskeletal: No other, No neck pain, No shoulder pain, No arm pain, No back pain, No hand pain, No leg pain, No foot pain Skin: No Rash, No Lesions, No Jaundice, No Bruising, No Other Objective Vitals Vital Signs Date Time Temp Pulse Resp B/P (MAP) Pulse Ox O2 Delivery O2 Flow Rate FiO2 03/10/25 17:15 67 22 121/51 (74) 99 03/10/25 16:45 98.3 98.3 03/10/25 08:00 Nasal Cannula* 3 32 Intake/Output Intake and Output 03/10/25 07:00 Intake Total 3001.98 ml Balance 3001.98 ml Intake Oral 700 ml IV Total 2301.98 ml # Voids 7 General Appearance: Alert, Oriented X3, Cooperative, No acute distress Lungs: Clear to auscultation Chest/Breasts: Discharge, Lesions, Lumps Cardiovascular: Regular rate, Normal S1, Normal S2, Other (Tachycardic) Extremities: No edema Medications Current Medications Medications Dose Ordered Sig/Emigdio Route Start Time Stop Time Status Last Admin Dose Admin Cefepime HCl 50 ml @ 12.5 mls/hr Q12HR IV 03/08/25 22:00 03/10/25 10:56 12.5 MLS/HR Norepinephrine Bitartrate 250 ml @ 3.75 mls/hr Q24H IV 03/08/25 12:45 03/09/25 04:21 7.5 MLS/HR Ondansetron HCl 4 mg Q4HP PRN IV 03/08/25 16:00 Docusate Sodium 100 mg BIDPRN PRN PO 03/08/25 16:00 Acetaminophen 650 mg Q6HP PRN PO 03/08/25 16:00 Morphine Sulfate 2 mg Q4HPRN PRN IV 03/08/25 16:00 Hold Nitroglycerin 0.4 mg Q5MINP PRN SL 03/08/25 16:00 Morphine Sulfate 2 mg Q30M PRN IV 03/08/25 16:00 Hold Atorvastatin Calcium 20 mg HS PO 03/08/25 22:00 03/09/25 21:21 20 MG Dexamethasone 16 mg HS PO 03/08/25 22:00 03/09/25 21:40 16 MG Acetaminophen/ Hydrocodone Bitart 1 tab Q12HP PRN PO 03/08/25 16:00 03/10/25 10:58 1 TAB Sodium Chloride 1,000 ml @ 100 mls/hr Q10H IV 03/09/25 13:00 03/10/25 09:00 100 MLS/HR Metoprolol Tartrate 50 mg BID PO 03/09/25 22:00 03/10/25 10:56 50 MG Verapamil HCl 240 mg HS PO 03/09/25 22:00 Amiodarone HCl 200 mg Q12HR PO 03/10/25 22:00 Laboratory Results Laboratory Tests 03/10/25 03:49 Chemistry Test 03/10/25 03:49 Albumin 3.3 g/dL (3.2-4.8) Calcium Level 7.8 mg/dL (8.7-10.4) L Magnesium Level 2.0 mg/dL (1.6-2.6) Total Protein 4.8 g/dL (5.7-8.2) L LFT Test 03/10/25 03:49 Alanine Aminotransferase (ALT) 10 U/L (7-40) Alkaline Phosphatase 102 U/L (46-116) Aspartate Amino Transferase (AST) 19 U/L (13-40) Total Bilirubin 0.9 mg/dL (0.2-1.0) Urinalysis Test 03/08/25 13:15 Urine Color Light-yellow (Yellow) Urine Clarity Turbid (Clear) H Urine pH 6.0 (5.0-9.0) Urine Specific [place] 1.024 (1.001-1.035) Urine Protein 1+ (Negative) H Urine Ketones 1+ (Negative) H Urine Blood 2+ /uL (Negative) H Urine Nitrite Negative (Negative) Urine Bilirubin Negative (Negative) Urine Urobilinogen Normal mg/dL (Negative) Urine Leukocyte Esterase 1+ /uL (Negative) Urine RBC 15 /hpf (0 - 4) Urine Microscopic WBC 69 /HPF (0-5) H Urine Squamous Epithelial Cells Few /hpf (<5) Urine Bacteria None seen /hpf (None Seen) Urine Glucose 1+ mg/dL (Normal) H Microbiology Microbiology Date/Time Source Procedure Growth Status 03/09/25 06:10 Nose MRSA Screen - Final Complete 03/08/25 10:36 Blood Blood Culture - Preliminary NO GROWTH AFTER 48 HOURS OF INCUBATION. Resulted Assessment/Plan Assessment/Plan Rectal bleeding Acute anemia Rule out sepsis Breast cancer metastatic to the bone Supraventricular tachycardia Possible septic shock Leukocytosis Hypotension Hypokalemia Plan The patient was transfuse 2 units RBCs Keep in ICU Bolus IV fluids and normal saline maintenance IV fluids Levophed as needed Give a 2nd dose of metoprolol IV 5 mg Restart her home medications metoprolol and verapamil Cardiology consult Echocardiogram GI consult Broad-spectrum IV antibiotics Continue dexamethasone home dose [place] p.r.n. for the pain Replace potassium as needed Full code Discussed with the daughter at the bedside Advance directives discussed for 19 minutes 03/10/25: Downgrade to Tele DC IV Amio PO Amio IV antibiotics Plan discussed with: Patient My Orders Orders - DAWIT HASSAN MD Procedure Category Date Status Time Apply Z-Guard DARIELA 03/09/25 In Process 10:50 Apply: DARIELA 03/09/25 In Process 10:50 Transfer Orders XFER 03/10/25 Transmitted 17:06 Date of Service: Mar 10, 2025 Billing Provider: DAWIT HASSAN MD Common Visit Codes: [id number] INP/OBS CARE(HIGH) DAWIT HASSAN MD Mar 10, 2025 17:47
[2025-03-10] MEDS: ONDANSETRON HCL 4 MG/2 ML VIAL IV PRN (19:11)
[2025-03-10] MEDS: AMIODARONE HCL 200 MG TAB PO SCH (21:53)
[2025-03-11] VITALS (10 sets, daily range): BP systolic 93–115; BP diastolic 51–68; PULSE 68–87; RESP 15–18; TEMP 97.7–98; O2SAT 93–96
[2025-03-11 07:26] LABS: Hematocrit 22.2 % (36.0-46.0); Hemoglobin 7.6 g/dL (12.2-16.2); Mean Corpuscular Hemoglobin 32.2 pg (28.0-32.0); Mean Corpuscular Volume 94.1 fL (80.0-100.0); Nucleated Red Blood Cells % 0.1 %
[2025-03-11 07:50] LABS: Alanine Aminotransferase 15 U/L (7-40); Alkaline Phosphatase 91 U/L (46-116); Anion Gap 6 (5-15); BUN/Creatinine Ratio 18.4 (10.0-20.0); Carbon Dioxide 27 mmol/L (20-31); Chloride 106 mmol/L (98-107); Magnesium 2.1 mg/dL (1.6-2.6); Sodium 139 mmol/L (136-145)
[2025-03-11 07:51] LABS: Albumin 3.2 g/dL (3.2-4.8); Bilirubin, Total 1.0 mg/dL (0.2-1.0)
[2025-03-11 07:53] LABS: Blood Urea Nitrogen 7 mg/dL (9-23); Calcium 7.2 mg/dL (8.7-10.4); Glucose 145 mg/dL (74-106); Potassium 3.4 mmol/L (3.5-5.1); Total Protein 4.7 g/dL (5.7-8.2)
--- NOTE | 2025-03-11 07:58 | DVHINCON2 ---
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 Patient states that she has had a colonoscopy within the last two years with Dr. Alatorre. She states that it was basically normal. She denies any prior history of GI bleeding. She denies any hematemesis. Patient's last chemotherapy was several weeks ago and she had usual symptoms of fatigue and nausea associated with it until she had the bloody diarrhea. Patient is no longer bleeding. She has received several units of packed red blood cells transfusion. She denies any chest pain or shortness of breath. Past Medical History As above Past Surgical History Mastectomy last Hysterectomy History of knee replacement surgery history of hip surgery Family History Denies Gastrointestinal diseases or malignancy Social History No tobacco, alcohol or recreational drug use Allergies: Coded Allergies: Morphine (Verified Allergy, Unknown, 03/08/25) Home Meds Reported Medications Verapamil Hcl (Calan Sr) 240 Mg Cp, 1 CAP PO DAILY 03/08/25 Senna (Senna-Time) 8.6 Mg Tab, 1 TAB PO BIDP PRN 03/08/25 Aspirin (Aspir-81) 81 Mg Tab, 1 TAB PO DAILY, #30 TAB 5 Refills 03/08/25 Dexamethasone (Decadron) 4 Mg Tb, 4 TAB PO HS, #8 TAB 03/08/25 Atorvastatin Calcium (ATORVASTATIN CALCIUM) 20 Mg Tab, 1 TAB PO HS 03/08/25 Metoprolol Tartrate (Metoprolol Tartrate) 100 Mg Tab, 1 TAB PO BID 03/08/25 Hydrocodone-Acetaminophen (Hydrocodone/Acetaminophen 10-325 mg) 1 Tab Tab, 1 TAB PO Q12HP PRN, TAB 03/08/25 Current Medications Current Medications Medications (Trade) Dose Ordered Sig/Emigdio Route PRN Reason Start Time Stop Time Status Last Admin Amiodarone HCl (Cordarone Tablet) 200 mg Q12HR PO 03/10/25 22:00 03/10/25 21:53 Review of Systems As per HPI Vital Signs Vital Signs Date Time Temp Pulse Resp B/P (MAP) Pulse Ox O2 Delivery O2 Flow Rate FiO2 03/11/25 05:00 97.8 76 17 113/57 (75) 93 97.8 03/10/25 19:30 Nasal Cannula* 2 28 Physical Exam General: Alert elderly female lying in bed, alopecia HEENT: NC/AT EOMI PERRLA-dry mucous membranes Heart: Tachycardia Abdomen: Soft, mild diffuse tenderness to palpation nondistended Extremities: No clubbing cyanosis or edema Labs/Diagnostic Data Labs Test 03/11/25 06:43 03/10/25 03:49 03/09/25 01:31 03/08/25 13:15 Range/Units White Blood Count 8.2 4.4-10.8 10^3/uL Red Blood Count 2.36 L 4.0-5.20 10^6/uL Hemoglobin 7.6 L 12.2-16.2 g/dL Hematocrit 22.2 L 36.0-46.0 % Mean Corpuscular Volume 94.1 80.0-100.0 fL Mean Corpuscular Hemoglobin 32.2 H 28.0-32.0 pg Mean Corpuscular Hemoglobin Concent 34.2 32.0-36.0 g/dL Red Cell Distribution Width 15.7 H 11.8-14.3 % Platelet Count 128 L 140-450 10^3/uL Mean Platelet Volume 8.9 6.9-10.8 fL Neutrophils (%) (Auto) 97.4 H 37.0-80.0 % Lymphocytes (%) (Auto) 1.6 L 10.0-50.0 % Monocytes (%) (Auto) 0.9 0.0-12.0 % Eosinophils (%) (Auto) 0.1 0.0-7.0 % Basophils (%) (Auto) 0.0 0.0-2.0 % Neutrophils # (Auto) 8.0 1.6-8.6 10 ^3/uL Lymphocytes # (Auto) 0.1 L 0.4-5.4 10 ^3/uL Monocytes # (Auto) 0.1 0-1.3 10 ^3/uL Eosinophils # (Auto) 0 0-0.8 10 ^3/uL Basophils # (Auto) 0 0-0.2 10 ^3/uL Nucleated Red Blood Cells 0.1 % Differential Total Cells Counted 100.0 100 Neutrophils % (Manual) 95 H 37.0-80.0 Band Neutrophils % (Manual) 3 Lymphocytes % (Manual) 1 L 10.0-50.0 Monocytes % (Manual) 1 0-12 Eosinophils % (Manual) 0 0-7 Basophils % (Manual) 0 0.0-2.0 Metamyelocytes % (manual) 0 Myelocytes % (Manual) 0 Promyelocytes % (Manual) 0 Blast Cells % (Manual) 0 Reactive Lymphocytes 0 Platelet Estimate Decreased Triglycerides Level 148 < 150 mg/dL Cholesterol Level 80 < 200 mg/dL LDL Cholesterol 37 < 100 mg/dL HDL Cholesterol 18 L 40-59 mg/dL Thyroid Stimulating Hormone (TSH) 1.13 0.55-4.78 uIU/mL Urine Color Light-yellow Yellow Urine Clarity Turbid H Clear Urine pH 6.0 5.0-9.0 Urine Specific [place] 1.024 1.001-1.035 Urine Protein 1+ H Negative Urine Ketones 1+ H Negative Urine Blood 2+ H Negative /uL Urine Nitrite Negative Negative Urine Bilirubin Negative Negative Urine Urobilinogen Normal Negative mg/dL Urine Leukocyte Esterase 1+ Negative /uL Urine RBC 15 0 - 4 /hpf Urine Microscopic WBC 69 H 0-5 /HPF Urine Squamous Epithelial Cells Few <5 /hpf Urine Bacteria None seen None Seen /hpf Urine Glucose 1+ H Normal mg/dL Test 03/08/25 13:11 03/08/25 10:41 Range/Units Prothrombin Time 13.8 H 9.3-11.8 sec Prothrombin Time INR 1.34 H 0.9-1.15 Activated Partial Thromboplast Time 25.7 24.5-34.5 SEC Lactic Acid Level 1.3 0.4-2.0 mmol/L POC Glucose 140 H 70-106 mg/dl Microbiology Date/Time Source Procedure Growth Status 03/09/25 06:10 Nose MRSA Screen - Final Complete 03/08/25 10:36 Blood Blood Culture - Preliminary NO GROWTH AFTER 48 HOURS OF INCUBATION. Resulted Assessment 1. Metastatic breast cancer 2. Tachycardia 3. Bloody diarrhea 4. Abdominal pain 5. Brain mass 6. Leukocytosis and septic shock, resolved Differential diagnosis includes ischemic colitis versus diverticular disease versus typhlitis versus other Problems(with codes): (1) Symptomatic anemia (2) Abnormal head CT (3) Severe anemia (4) Breast cancer Plan/Recommendation 1. Continue current medications 2. Diet as tolerated 3. No colonoscopy at this time , we will consider if the patient is stable from a cardiac perspective. 4. Continue with cardiac workup and workup for the brain mass 5. Pain control 6. Caution with aspirin NSAIDs and anticoagulant 7. Follow H&H and transfuse as necessary Plan discussed with: Patient XIMENA CARTER MD Mar 11, 2025 07:58
[2025-03-11] MEDS: METOPROLOL TARTRATE 1MG/1ML-5ML VIAL IV ONE (09:30)
[2025-03-11] MEDS: POTASSIUM CHL 20 Meq TABLET PO ONE (10:19)
--- NOTE | 2025-03-11 10:29 | DVHPN2 ---
Subjective The patient just went into SVT again this morning for about half an hour with a heart rate of 160 and then she converted back to sinus rhythm spontaneously Her potassium was 3.4 and magnesium 2.1 Hemoglobin is 7.6 Changes from previous H/P or p: Changes Eyes: No Pain, No Vision change, No Conjunctivae inflammation, No Eyelid inflammation, No Other, No Redness ENT: No Ear pain, No Ear discharge, No Nose pain, No Nose discharge, No Nose congestion, No Mouth pain, No Mouth swelling, No Throat pain, No Throat swelling, No Other Cardiovascular: No Chest Pain, No Palpitations, No Orthopnea, No Paroxysmal Noc. Dyspnea, No Edema, No Lt Headedness, No Other Respiratory: No Cough, No Dry, No Shortness of breath, No SOB with excertion, No Wheezing, No Hemoptysis, No Pleuritic Pain, No Sputum, No Other Gastrointestinal: No Nausea, No Vomiting, No Abdominal Pain; Diarrhea; No Constipation; Melena; No Hematochezia, No Other Genitourinary: No Dysuria, No Frequency, No Incontinence, No Hematuria, No Retention, No Other Musculoskeletal: No other, No neck pain, No shoulder pain, No arm pain, No back pain, No hand pain, No leg pain, No foot pain Skin: No Rash, No Lesions, No Jaundice, No Bruising, No Other Objective Vitals Vital Signs Date Time Temp Pulse Resp B/P (MAP) Pulse Ox O2 Delivery O2 Flow Rate FiO2 03/11/25 09:14 165 111/68 03/11/25 09:00 98.0 16 94 98.0 03/10/25 19:30 Nasal Cannula* 2 28 Intake/Output Intake and Output 03/11/25 07:00 Intake Total 2049.96 ml Balance 2049.96 ml Intake Oral 800 ml IV Total 1249.96 ml # Voids 5 General Appearance: Alert, Oriented X3, Cooperative, No acute distress Lungs: Clear to auscultation Chest/Breasts: Discharge, Lesions, Lumps Cardiovascular: Regular rate, Normal S1, Normal S2, Other (Tachycardic) Extremities: No edema Medications Current Medications Medications Dose Ordered Sig/Emigdio Route Start Time Stop Time Status Last Admin Dose Admin Cefepime HCl 50 ml @ 12.5 mls/hr Q12HR IV 03/08/25 22:00 03/11/25 09:14 12.5 MLS/HR Norepinephrine Bitartrate 250 ml @ 3.75 mls/hr Q24H IV 03/08/25 12:45 Hold 03/09/25 04:21 7.5 MLS/HR Ondansetron HCl 4 mg Q4HP PRN IV 03/08/25 16:00 03/10/25 19:11 4 MG Docusate Sodium 100 mg BIDPRN PRN PO 03/08/25 16:00 Acetaminophen 650 mg Q6HP PRN PO 03/08/25 16:00 Morphine Sulfate 2 mg Q4HPRN PRN IV 03/08/25 16:00 Hold Nitroglycerin 0.4 mg Q5MINP PRN SL 03/08/25 16:00 Morphine Sulfate 2 mg Q30M PRN IV 03/08/25 16:00 Hold Atorvastatin Calcium 20 mg HS PO 03/08/25 22:00 03/10/25 21:55 20 MG Dexamethasone 16 mg HS PO 03/08/25 22:00 03/10/25 22:38 16 MG Acetaminophen/ Hydrocodone Bitart 1 tab Q12HP PRN PO 03/08/25 16:00 03/11/25 05:51 1 TAB Sodium Chloride 1,000 ml @ 100 mls/hr Q10H IV 03/09/25 13:00 03/11/25 05:43 100 MLS/HR Metoprolol Tartrate 50 mg BID PO 03/09/25 22:00 03/11/25 09:14 50 MG Verapamil HCl 240 mg HS PO 03/09/25 22:00 Amiodarone HCl 200 mg Q12HR PO 03/10/25 22:00 03/11/25 09:13 200 MG Laboratory Results Laboratory Tests 03/11/25 06:43 Chemistry Test 03/11/25 06:43 Albumin 3.2 g/dL (3.2-4.8) Calcium Level 7.2 mg/dL (8.7-10.4) L Magnesium Level 2.1 mg/dL (1.6-2.6) Total Protein 4.7 g/dL (5.7-8.2) L LFT Test 03/11/25 06:43 Alanine Aminotransferase (ALT) 15 U/L (7-40) Alkaline Phosphatase 91 U/L (46-116) Aspartate Amino Transferase (AST) 20 U/L (13-40) Total Bilirubin 1.0 mg/dL (0.2-1.0) Urinalysis Test 03/08/25 13:15 Urine Color Light-yellow (Yellow) Urine Clarity Turbid (Clear) H Urine pH 6.0 (5.0-9.0) Urine Specific [place] 1.024 (1.001-1.035) Urine Protein 1+ (Negative) H Urine Ketones 1+ (Negative) H Urine Blood 2+ /uL (Negative) H Urine Nitrite Negative (Negative) Urine Bilirubin Negative (Negative) Urine Urobilinogen Normal mg/dL (Negative) Urine Leukocyte Esterase 1+ /uL (Negative) Urine RBC 15 /hpf (0 - 4) Urine Microscopic WBC 69 /HPF (0-5) H Urine Squamous Epithelial Cells Few /hpf (<5) Urine Bacteria None seen /hpf (None Seen) Urine Glucose 1+ mg/dL (Normal) H Microbiology Microbiology Date/Time Source Procedure Growth Status 03/09/25 06:10 Nose MRSA Screen - Final Complete 03/08/25 10:36 Blood Blood Culture - Preliminary NO GROWTH AFTER 48 HOURS OF INCUBATION. Resulted Assessment/Plan Assessment/Plan Rectal bleeding Acute anemia Rule out sepsis Breast cancer metastatic to the bone Supraventricular tachycardia Possible septic shock Leukocytosis Hypotension Hypokalemia Plan The patient was transfuse 2 units RBCs Keep in ICU Bolus IV fluids and normal saline maintenance IV fluids Levophed as needed Give a 2nd dose of metoprolol IV 5 mg Restart her home medications metoprolol and verapamil Cardiology consult Echocardiogram GI consult Broad-spectrum IV antibiotics Continue dexamethasone home dose [place] p.r.n. for the pain Replace potassium as needed Full code Discussed with the daughter at the bedside Advance directives discussed for 19 minutes 03/10/25: Downgrade to Tele DC IV Amio PO Amio IV antibiotics 03/11/2025: Replace potassium SVT: Continue metoprolol and verapamil Continue amiodarone p.o. Monitor the potassium and magnesium closely and replace as needed Continue cefepime IV IV fluids normal saline Monitor the patient in the hospital 1 more day closely The patient is being followed by Cardiology also The rest of the management will depend on the hospital course Plan discussed with: Patient My Orders Orders - DAWIT HASSAN MD Procedure Category Date Status Time Transfer Orders XFER 03/10/25 Transmitted 17:06 Date of Service: Mar 11, 2025 Billing Provider: DAWIT HASSAN MD Common Visit Codes: [id number] INP/OBS CARE(HIGH) DAWIT HASSAN MD Mar 11, 2025 10:29
--- NOTE | 2025-03-11 12:51 | DVHPN2 ---
Subjective Likely Junctional tachycardia rate 160 Denies palpitation or chest pain, or shortness of breath Changes from previous H/P or p: Changes Eyes: No Pain, No Vision change, No Conjunctivae inflammation, No Eyelid inflammation, No Other, No Redness ENT: No Ear pain, No Ear discharge, No Nose pain, No Nose discharge, No Nose congestion, No Mouth pain, No Mouth swelling, No Throat pain, No Throat swelling, No Other Cardiovascular: No Chest Pain, No Palpitations, No Orthopnea, No Paroxysmal Noc. Dyspnea, No Edema, No Lt Headedness; Other (Tachycardia) Respiratory: No Cough, No Dry, No Shortness of breath, No SOB with excertion, No Wheezing, No Hemoptysis, No Pleuritic Pain, No Sputum, No Other Gastrointestinal: No Nausea, No Vomiting, No Abdominal Pain; Diarrhea; No Constipation; Melena; No Hematochezia, No Other Genitourinary: No Dysuria, No Frequency, No Incontinence, No Hematuria, No Retention, No Other Musculoskeletal: No other, No neck pain, No shoulder pain, No arm pain, No back pain, No hand pain, No leg pain, No foot pain Skin: No Rash, No Lesions, No Jaundice, No Bruising, No Other Objective Vitals Vital Signs Date Time Temp Pulse Resp B/P (MAP) Pulse Ox O2 Delivery O2 Flow Rate FiO2 03/11/25 12:00 80 03/11/25 10:14 93/56 03/11/25 09:00 98.0 16 94 98.0 03/11/25 08:00 Nasal Cannula* 3 32 Intake/Output Intake and Output 03/11/25 07:00 Intake Total 2049.96 ml Balance 2049.96 ml Intake Oral 800 ml IV Total 1249.96 ml # Voids 5 General Appearance: Alert, Oriented X3, Cooperative, No acute distress Lungs: Clear to auscultation Chest/Breasts: Discharge, Lesions, Lumps Cardiovascular: Regular rate, Normal S1, Normal S2, Other (Tachycardic) Extremities: No edema Medications Current Medications Medications Dose Ordered Sig/Emigdio Route Start Time Stop Time Status Last Admin Dose Admin Cefepime HCl 50 ml @ 12.5 mls/hr Q12HR IV 03/08/25 22:00 03/11/25 09:14 12.5 MLS/HR Norepinephrine Bitartrate 250 ml @ 3.75 mls/hr Q24H IV 03/08/25 12:45 Hold 03/09/25 04:21 7.5 MLS/HR Ondansetron HCl 4 mg Q4HP PRN IV 03/08/25 16:00 03/10/25 19:11 4 MG Docusate Sodium 100 mg BIDPRN PRN PO 03/08/25 16:00 Acetaminophen 650 mg Q6HP PRN PO 03/08/25 16:00 Morphine Sulfate 2 mg Q4HPRN PRN IV 03/08/25 16:00 Hold Nitroglycerin 0.4 mg Q5MINP PRN SL 03/08/25 16:00 Morphine Sulfate 2 mg Q30M PRN IV 03/08/25 16:00 Hold Atorvastatin Calcium 20 mg HS PO 03/08/25 22:00 03/10/25 21:55 20 MG Dexamethasone 16 mg HS PO 03/08/25 22:00 03/10/25 22:38 16 MG Acetaminophen/ Hydrocodone Bitart 1 tab Q12HP PRN PO 03/08/25 16:00 03/11/25 05:51 1 TAB Sodium Chloride 1,000 ml @ 100 mls/hr Q10H IV 03/09/25 13:00 03/11/25 05:43 100 MLS/HR Metoprolol Tartrate 50 mg BID PO 03/09/25 22:00 03/11/25 09:14 50 MG Verapamil HCl 240 mg HS PO 03/09/25 22:00 Amiodarone HCl 200 mg Q12HR PO 03/10/25 22:00 03/11/25 09:13 200 MG Magnesium Sulfate/ Dextrose 100 ml @ 100 mls/hr Q1HR IV 03/11/25 11:00 03/11/25 12:59 Magnesium Oxide 400 mg BID PO 03/11/25 22:00 Laboratory Results Laboratory Tests 03/11/25 06:43 Chemistry Test 03/11/25 06:43 Albumin 3.2 g/dL (3.2-4.8) Calcium Level 7.2 mg/dL (8.7-10.4) L Magnesium Level 2.1 mg/dL (1.6-2.6) Total Protein 4.7 g/dL (5.7-8.2) L LFT Test 03/11/25 06:43 Alanine Aminotransferase (ALT) 15 U/L (7-40) Alkaline Phosphatase 91 U/L (46-116) Aspartate Amino Transferase (AST) 20 U/L (13-40) Total Bilirubin 1.0 mg/dL (0.2-1.0) Urinalysis Test 03/08/25 13:15 Urine Color Light-yellow (Yellow) Urine Clarity Turbid (Clear) H Urine pH 6.0 (5.0-9.0) Urine Specific [place] 1.024 (1.001-1.035) Urine Protein 1+ (Negative) H Urine Ketones 1+ (Negative) H Urine Blood 2+ /uL (Negative) H Urine Nitrite Negative (Negative) Urine Bilirubin Negative (Negative) Urine Urobilinogen Normal mg/dL (Negative) Urine Leukocyte Esterase 1+ /uL (Negative) Urine RBC 15 /hpf (0 - 4) Urine Microscopic WBC 69 /HPF (0-5) H Urine Squamous Epithelial Cells Few /hpf (<5) Urine Bacteria None seen /hpf (None Seen) Urine Glucose 1+ mg/dL (Normal) H Microbiology Microbiology Date/Time Source Procedure Growth Status 03/09/25 06:10 Nose MRSA Screen - Final Complete 03/08/25 10:36 Blood Blood Culture - Preliminary NO GROWTH AFTER 72 HOURS OF INCUBATION. Resulted Assessment/Plan Assessment/Plan Junctional tachycardia versus SVT Rule out structural heart disease Hemorrhagic versus septic shock Severe anemia status post PRBC transfusion Dyslipidemia Hypokalemia Metastatic breast cancer currently undergoing radiation and chemotherapy History of tobacco use Plan/Recommendation (Dr. Esqueda): Transient ?junctional tachycardia/SVT in 160s, now rate is controlled Electrolyte imbalance The patient was admitted with concerns for junctional tachycardia versus SVT, along with anemia post PRBC transfusion, and possible hemorrhagic versus septic shock. Cardiology was consulted for arrhythmia evaluation management. She is currently being treated with a beta jason for rate control and amiodarone 200 mg for rhythm management. The patient subsequently developed possible junctional tachycardia upto the 160s, likely in the setting of ongoing hemodynamic stress. She was treated with IV metoprolol 2.5 mg, and electrolytes were repleted. She had low serum magnesium and potassium, both of which were addressed, and she was started on oral magnesium oxide 400 mg b.i.d. for ongoing repletion and stabilization. Given her complex presentation---including possible structural heart disease, recent transfusion, and shock--ongoing telemetry monitoring is warranted. Rate and rhythm control will continue with current beta jason and amiodarone regimen, titrated to tolerance and hemodynamic response. Recommend trending electrolytes and monitoring for bradycardia arrhythmias due to dual panda blockage. Cardiology will continue to follow and adjust management as needed Case discussed with . Thank you for allowing us to care for this patient. Please call with any questions or concerns. Plan discussed with: Patient My Orders Orders - MELODY ELIZABETH Procedure Category Date Status Time Magnesium Sulfate PHA 03/11/25 In Process 1gm/100ml 11:00 Magnesium Oxide PHA 03/11/25 In Process Tablet (Mag-Ox Tablet) 22:00 Date of Service: Mar 11, 2025 Billing Provider: MARTHA MOTA MD Common Visit Codes: CONSULT ONLY Consultation Codes: [id number] CONSULT <45MIN MELODY ELIZABETH Mar 11, 2025 12:51
[2025-03-11] MEDS: MAGNESIUM SULFATE 1GM/100ML 100 ML IV SCH (13:28)
--- NOTE | 2025-03-11 14:32 | DVHSR ---
APPROVED REPORT EXAM: LIMITED Two-dimensional and M-mode echocardiogram with Doppler and color Doppler. Blood Pressure: 109/56 mmHg INDICATION Tachycardia RISK FACTORS Height: 5' 6", Weight: 149 DIMENSIONS LVDd4.8 (3.8-5.7cm)LA (2D)3.8 (1.9-4.0cm)Aortic Root3.2 (2.0-3.7cm) LVDs3.2 (2.5-4.0cm)LA (MM) (1.9-4.0cm)Aortic Cusp Exc1.7 (1.5-2.0cm) EF (%) 62.0 (55-70%)Rt. Atrium5.3 (1.9-4.0cm)Asc. Aorta cm IVSd1.0 (0.7-1.1cm)RV (D) (1.8-2.4cm) PWd1.0 (0.7-1.1cm) Mitral Valve MitralMitral Stenosis E wave0.80m/sMV Mean GR.mmHg A wave0.70m/sMV Peak GR.mmHg E/A ratio1.12D MVAcm2 Aortic Valve Aortic ValveAortic Stenosis V10.80m/Bob Mean GR.5mmHg V21.50m/Bob Peak GR.9mmHg LVOT Diameter2.1 (1.8-2.4cm)Doppler AVA1.85cm2 Pulmonic Valve V20.60m/s Tricuspid Valve TR Velocity2.40m/s [id number] Other Information Quality : Technically LimitedRhythm : Technically limited study due to body habitus, patient with large breast implants. Conclusion MILD LVH AND MILD LV DIASTOLIC DYSFUNCTION LV EF IS 65% AORTIC SCLEROSIS BUT NO STENOSIS NORMAL MITRAL, TV AND PV NO EFFUSION NORMAL RV FUNCTION RVSP IS 30 MM OF HG AND IS NORMAL
[2025-03-11] MEDS: MAGNESIUM OXIDE 400 MG TAB PO SCH (20:37)
--- NOTE | 2025-03-11 23:44 | DVHPN2 ---
Consult Progress Note Date Seen: Mar 11, 2025 Subjective Other Systems: Patient was seen and evaluated in follow up. Patient is showing Junctional tachycardia with a rate of 160 on th personnel monitor. Patient denies heart palpitations or chest pain, or shortness of breath. HGB 7.6, HCT 22.2, K 3.4, CA 7.2. Telemetry reviewed. Objective vital signs Vital Sign Date Time Temp Pulse Resp B/P (MAP) Pulse Ox O2 Delivery O2 Flow Rate FiO2 03/11/25 13:00 97.7 69 15 93/56 (68) 96 97.7 03/11/25 08:00 Nasal Cannula* 3 32 Total Intake and Output 03/10/25 03/10/25 03/11/25 15:00 23:00 07:00 Intake Total 949.96 ml 900 ml 200 ml Balance 949.96 ml 900 ml 200 ml medications Current Medications Medications Dose Ordered Sig/Emigdio Route Start Time Stop Time Status Last Admin Dose Admin Cefepime HCl 50 ml @ 12.5 mls/hr Q12HR IV 03/08/25 22:00 03/11/25 09:14 12.5 MLS/HR Norepinephrine Bitartrate 250 ml @ 3.75 mls/hr Q24H IV 03/08/25 12:45 Hold 03/09/25 04:21 7.5 MLS/HR Ondansetron HCl 4 mg Q4HP PRN IV 03/08/25 16:00 03/10/25 19:11 4 MG Docusate Sodium 100 mg BIDPRN PRN PO 03/08/25 16:00 Acetaminophen 650 mg Q6HP PRN PO 03/08/25 16:00 Morphine Sulfate 2 mg Q4HPRN PRN IV 03/08/25 16:00 Hold Nitroglycerin 0.4 mg Q5MINP PRN SL 03/08/25 16:00 Morphine Sulfate 2 mg Q30M PRN IV 03/08/25 16:00 Hold Atorvastatin Calcium 20 mg HS PO 03/08/25 22:00 03/10/25 21:55 20 MG Dexamethasone 16 mg HS PO 03/08/25 22:00 03/10/25 22:38 16 MG Acetaminophen/ Hydrocodone Bitart 1 tab Q12HP PRN PO 03/08/25 16:00 03/11/25 05:51 1 TAB Sodium Chloride 1,000 ml @ 100 mls/hr Q10H IV 03/09/25 13:00 03/11/25 05:43 100 MLS/HR Metoprolol Tartrate 50 mg BID PO 03/09/25 22:00 03/11/25 09:14 50 MG Verapamil HCl 240 mg HS PO 03/09/25 22:00 Amiodarone HCl 200 mg Q12HR PO 03/10/25 22:00 03/11/25 09:13 200 MG Magnesium Oxide 400 mg BID PO 03/11/25 22:00 Examination: GENERAL:Normal, HEENT:Normal, NECK:Normal, LUNGS:Normal, CVS:Abnormal (Tachycardic), ABDOMEN:Normal, MSK:Normal, SKIN:Normal, NEURO:Normal laboratory and microbiology Laboratory Tests 03/11/25 06:43 Test 03/11/25 06:43 Range/Units Serum Glucose 145 H 74-106 mg/dL Problem List/Assessment/Plan Problem List/Assessment/Plan Assessment/Plan Junctional tachycardia versus SVT. Rule out structural heart disease. Hemorrhagic versus septic shock. Severe anemia status post PRBC transfusion. Dyslipidemia. Hypokalemia. Metastatic breast cancer currently undergoing radiation and chemotherapy. History of tobacco use. Transient ?junctional tachycardia/SVT in 160s, now rate is controlled. Electrolyte imbalance. Plan/Recommendation Continued all current supportive medical care. Patient has been seen by Stefany Molina NP on my behalf, her and I discussed the plan with the patient. The patient was admitted with concerns for junctional tachycardia versus SVT, along with anemia post PRBC transfusion, and possible hemorrhagic versus septic shock. Cardiology was consulted for arrhythmia evaluation management. She is currently being treated with a beta jason for rate control and amiodarone 200 mg for rhythm management. The patient subsequently developed possible junctional tachycardia up to the 160s, likely in the setting of ongoing hemodynamic stress. She was treated with IV metoprolol 2.5 mg, and electrolytes were repleted. She had low serum magnesium and potassium, both of which were addressed, and she was started on oral magnesium oxide 400 mg b.i.d. for ongoing repletion and stabilization. Given her complex presentation---including possible structural heart disease, recent transfusion, and shock--ongoing telemetry monitoring is warranted. Rate and rhythm control will continue with current beta jason and amiodarone regimen, titrated to tolerance and hemodynamic response. Recommend trending electrolytes and monitoring for bradycardia arrhythmias due to dual panda blockage. Cardiology will continue to follow and adjust management as needed. Additional plan as per the hospital course. Plan discussed with: Patient CC Plasma Assessment Blood Product Administration S: 1900 Date of Service: Mar 11, 2025 Billing Provider: MARTHA MOTA MD Cardiology Common Codes: [id number] INP/OBS CARE (High) Cardiology Consultation Codes: [id number] CONSULT <45MIN MARTHA MOTA MD Mar 11, 2025 15:16
[2025-03-12 01:00] VITALS: BP 104/44; PULSE 60; RESP 18; TEMP 97.8; O2SAT 97
[2025-03-12 04:58] LABS: Hemoglobin 7.9 g/dL (12.2-16.2)
[2025-03-12 05:00] VITALS: BP 103/51; PULSE 61; RESP 16; TEMP 97.6; O2SAT 91
[2025-03-12 05:02] LABS: Hematocrit 22.6 % (36.0-46.0); Mean Corpuscular Hemoglobin 32.8 pg (28.0-32.0); Mean Corpuscular Volume 93.6 fL (80.0-100.0); Nucleated Red Blood Cells % 0.2 %
[2025-03-12 05:21] LABS: Alanine Aminotransferase 19 U/L (7-40); Alkaline Phosphatase 89 U/L (46-116); Anion Gap 7 (5-15); BUN/Creatinine Ratio 21.6 (10.0-20.0); Carbon Dioxide 25 mmol/L (20-31); Chloride 107 mmol/L (98-107); Magnesium 2.4 mg/dL (1.6-2.6); Potassium 3.9 mmol/L (3.5-5.1); Sodium 139 mmol/L (136-145)
[2025-03-12 05:22] LABS: Bilirubin, Total 0.9 mg/dL (0.2-1.0)
[2025-03-12 05:33] LABS: Albumin 3.2 g/dL (3.2-4.8); Blood Urea Nitrogen 8 mg/dL (9-23); Calcium 7.3 mg/dL (8.7-10.4); Glucose 132 mg/dL (74-106); Total Protein 4.6 g/dL (5.7-8.2)
[2025-03-12 08:00] VITALS: PULSE 74
[2025-03-12 09:00] VITALS: BP 140/74; PULSE 71; RESP 16; TEMP 97.2; O2SAT 96
--- NOTE | 2025-03-12 10:09 | DVHPN2 ---
Progress Note - Dictate Date Seen: Mar 12, 2025 Medical Necessity Reason Pt with a Central, PICC or Fol: Yes Subjective Patient denies diarrhea or bleeding. She denies any abdominal pain vital signs Vital Sign Date Time Temp Pulse Resp B/P (MAP) Pulse Ox O2 Delivery O2 Flow Rate FiO2 03/12/25 09:28 71 140/74 03/12/25 09:00 97.2 16 96 97.2 03/11/25 20:00 Room Air* 0 21 Total Intake and Output 03/11/25 03/11/25 03/12/25 15:00 23:00 07:00 Intake Total 1750 ml 1700 ml Balance 1750 ml 1700 ml medications Current Medications Medications Dose Ordered Sig/Emigdio Route Start Time Stop Time Status Last Admin Dose Admin Cefepime HCl 50 ml @ 12.5 mls/hr Q12HR IV 03/08/25 22:00 03/12/25 09:28 12.5 MLS/HR Norepinephrine Bitartrate 250 ml @ 3.75 mls/hr Q24H IV 03/08/25 12:45 Hold 03/09/25 04:21 7.5 MLS/HR Ondansetron HCl 4 mg Q4HP PRN IV 03/08/25 16:00 03/10/25 19:11 4 MG Docusate Sodium 100 mg BIDPRN PRN PO 03/08/25 16:00 Acetaminophen 650 mg Q6HP PRN PO 03/08/25 16:00 Morphine Sulfate 2 mg Q4HPRN PRN IV 03/08/25 16:00 Hold Nitroglycerin 0.4 mg Q5MINP PRN SL 03/08/25 16:00 Morphine Sulfate 2 mg Q30M PRN IV 03/08/25 16:00 Hold Atorvastatin Calcium 20 mg HS PO 03/08/25 22:00 03/11/25 20:37 20 MG Dexamethasone 16 mg HS PO 03/08/25 22:00 03/11/25 20:39 16 MG Acetaminophen/ Hydrocodone Bitart 1 tab Q12HP PRN PO 03/08/25 16:00 03/11/25 20:38 1 TAB Sodium Chloride 1,000 ml @ 100 mls/hr Q10H IV 03/09/25 13:00 03/12/25 01:00 100 MLS/HR Metoprolol Tartrate 50 mg BID PO 03/09/25 22:00 03/12/25 09:28 50 MG Verapamil HCl 240 mg HS PO 03/09/25 22:00 Amiodarone HCl 200 mg Q12HR PO 03/10/25 22:00 03/12/25 09:27 200 MG Magnesium Oxide 400 mg BID PO 03/11/25 22:00 03/12/25 09:27 400 MG objective General: Thin, alopecia HEENT: NC/AT EOMI PERRLA O/P clear, no JVD or cervical lymphadenopathy, no scleral icterus Heart: Regular rate and rhythm, no murmurs rubs or gallops Lungs: Clear to auscultation bilaterally, no wheezes rales or rhonchi Abdomen: Soft, nontender, nondistended, no organomegaly, normoactive bowel sounds Extremity: No clubbing cyanosis or edema, no rashes or bruises Neuro: Cranial nerves 2-12 grossly intact, moves all four extremities, no asterixis laboratory and microbiology Laboratory Tests 03/12/25 04:11 Test 03/12/25 04:11 Range/Units Serum Glucose 132 H 74-106 mg/dL Problem List 1. Metastatic breast cancer 2. Hematochezia 3. Diarrhea Symptoms have resolved, in terms of hematochezia and diarrhea, Assessment/Plan 1. Metastatic breast cancer 2. Tachycardia 3. Bloody diarrhea 4. Abdominal pain 5. Brain mass 6. Leukocytosis and septic shock, resolved Differential diagnosis includes ischemic colitis versus diverticular disease versus typhlitis versus other Recommendations: 1. Follow labs 2. Continue current medications 3. Workup for brain mass 4. Hold off on colonoscopy at this time Problems(with codes): (1) Breast cancer (2) Symptomatic anemia (3) Abnormal head CT (4) Severe anemia Dietary Evaluation Review Comments: 1) Initiate Ensure Enlive bid 2) Encourage optimal PO intake 3) Consider soluble fiber supplement d/t constipation 4) Follow-up with oncology and gastroenterology 5) Continue to monitor I&O, labs, and skin integrity Expected Outcomes/Goals: 1) appetite and labs to improve 2) GI symptoms to resolve 3) f/u in 3-5 days Plan discussed with: Patient Is the fluid challenge complet: Yes Date of Reassessment: Mar 08, 2025 Time of Reassessment: 1215 Blood Culture Time: 1025 Time Antibiotics Given: 1030 Systolic BP: 88 Diastolic BP: 38 Blood Pressure Mean: 55 Respiration: 18 Respiratory Effort: Non-Labored Respiratory Pattern: Regular Oxygen Saturation: 100 Pulse Rate: 83 Pulse Location: Radial Pulse Strength: Normal Pulse Assessment Method: Palpation Pulse Rhythm: Regular Capillary Refill: < 3 seconds Heart Sounds: S1 & S2 Breath sounds: Wheezes Skin Moisture: Dry Skin Tugor: WNL Skin Color: Pale CC Plasma Assessment Blood Product Administration S: 19:00 XIMENA CARTER MD Mar 12, 2025 10:09
--- NOTE | 2025-03-12 10:49 | DVHDS2 ---
Discharge Summary Date of Admission Mar 08, 2025 at 15:46 Date of Discharge: Mar 12, 2025 Labs/Diagnostic Data: Laboratory Results Test 03/12/25 04:11 03/10/25 03:49 03/09/25 01:31 03/08/25 13:15 White Blood Count 8.0 10^3/uL (4.4-10.8) Red Blood Count 2.41 10^6/uL (4.0-5.20) Hemoglobin 7.9 g/dL (12.2-16.2) Hematocrit 22.6 % (36.0-46.0) Mean Corpuscular Volume 93.6 fL (80.0-100.0) Mean Corpuscular Hemoglobin 32.8 pg (28.0-32.0) Mean Corpuscular Hemoglobin Concent 35.0 g/dL (32.0-36.0) Red Cell Distribution Width 15.4 % (11.8-14.3) Platelet Count 139 10^3/uL (140-450) Mean Platelet Volume 8.7 fL (6.9-10.8) Neutrophils (%) (Auto) 95.5 % (37.0-80.0) Lymphocytes (%) (Auto) 2.4 % (10.0-50.0) Monocytes (%) (Auto) 1.9 % (0.0-12.0) Eosinophils (%) (Auto) 0.0 % (0.0-7.0) Basophils (%) (Auto) 0.2 % (0.0-2.0) Neutrophils # (Auto) 7.7 10 ^3/uL (1.6-8.6) Lymphocytes # (Auto) 0.2 10 ^3/uL (0.4-5.4) Monocytes # (Auto) 0.2 10 ^3/uL (0-1.3) Eosinophils # (Auto) 0 10 ^3/uL (0-0.8) Basophils # (Auto) 0 10 ^3/uL (0-0.2) Nucleated Red Blood Cells 0.2 % Sodium Level 139 mmol/L (136-145) Potassium Level 3.9 mmol/L (3.5-5.1) Chloride Level 107 mmol/L (98-107) Carbon Dioxide Level 25 mmol/L (20-31) Anion Gap 7 (5-15) Blood Urea Nitrogen 8 mg/dL (9-23) Creatinine 0.37 mg/dL (0.550-1.02) Glomerular Filtration Rate Calc 101 mL/min (>90) BUN/Creatinine Ratio 21.6 (10.0-20.0) Serum Glucose 132 mg/dL (74-106) Calcium Level 7.3 mg/dL (8.7-10.4) Magnesium Level 2.4 mg/dL (1.6-2.6) Total Bilirubin 0.9 mg/dL (0.2-1.0) Aspartate Amino Transferase (AST) 22 U/L (13-40) Alanine Aminotransferase (ALT) 19 U/L (7-40) Alkaline Phosphatase 89 U/L (46-116) Total Protein 4.6 g/dL (5.7-8.2) Albumin 3.2 g/dL (3.2-4.8) Differential Total Cells Counted 100.0 (100) Neutrophils % (Manual) 95 (37.0-80.0) Band Neutrophils % (Manual) 3 Lymphocytes % (Manual) 1 (10.0-50.0) Monocytes % (Manual) 1 (0-12) Eosinophils % (Manual) 0 (0-7) Basophils % (Manual) 0 (0.0-2.0) Metamyelocytes % (manual) 0 Myelocytes % (Manual) 0 Promyelocytes % (Manual) 0 Blast Cells % (Manual) 0 Reactive Lymphocytes 0 Platelet Estimate Decreased Triglycerides Level 148 mg/dL (< 150) Cholesterol Level 80 mg/dL (< 200) LDL Cholesterol 37 mg/dL (< 100) HDL Cholesterol 18 mg/dL (40-59) Thyroid Stimulating Hormone (TSH) 1.13 uIU/mL (0.55-4.78) Urine Color Light-yellow (Yellow) Urine Clarity Turbid (Clear) Urine pH 6.0 (5.0-9.0) Urine Specific [place] 1.024 (1.001-1.035) Urine Protein 1+ (Negative) Urine Ketones 1+ (Negative) Urine Blood 2+ /uL (Negative) Urine Nitrite Negative (Negative) Urine Bilirubin Negative (Negative) Urine Urobilinogen Normal mg/dL (Negative) Urine Leukocyte Esterase 1+ /uL (Negative) Urine RBC 15 /hpf (0 - 4) Urine Microscopic WBC 69 /HPF (0-5) Urine Squamous Epithelial Cells Few /hpf (<5) Urine Bacteria None seen /hpf (None Seen) Urine Glucose 1+ mg/dL (Normal) Test 03/08/25 13:11 03/08/25 10:41 Prothrombin Time 13.8 sec (9.3-11.8) Prothrombin Time INR 1.34 (0.9-1.15) Activated Partial Thromboplast Time 25.7 SEC (24.5-34.5) Lactic Acid Level 1.3 mmol/L (0.4-2.0) POC Glucose 140 mg/dl (70-106) Other Laboratory Tests 03/12/25 04:11 Brief Hx & Hospital Course: Final diagnoses: Supraventricular tachycardic, resolved Metastatic breast cancer Rectal bleeding, resolved Acute anemia status post blood transfusion, stable Leukocytosis, resolved Hypotension due to blood loss Hypokalemia corrected Hospital course: Patient was admitted due to low blood pressure and anemia with tachycardia Her heart rate was 140-160 with SVT, it was started on amiodarone drip, she takes verapamil and metoprolol at home which were continue She required blood transfusion due to the anemia with a hemoglobin of 5.9 GI consult recommended conservative treatment Amiodarone drip was switched to p.o. She converted to sinus rhythm Yesterday she had another episode of SVT with a heart rate of 160 for half an hour and her potassium was low so it was corrected Since yesterday morning she has been in sinus rhythm No new problems She is mostly bed and chair bound due to her left hip injury that is scheduled to have a surgery for as an outpatient later when she is discharged from the hospital She is getting chemotherapy for her breast cancer Hemoglobin today is 7.9 Electrolytes are normal The patient is stable for discharge Continue the home medications which include verapamil and metoprolol and [place] p.r.n. for pain Condition at Discharge: Stable Final Diagnosis/Problems List Supraventricular tachycardic, resolved Metastatic breast cancer Rectal bleeding, resolved Acute anemia status post blood transfusion, stable Leukocytosis, resolved Hypotension due to blood loss Hypokalemia corrected Discharge Disposition: Home SNF Discharge Will this Physician continue t: No Discharge Instruct/Medications Scheduled Aspirin (Aspir-81), 1 TAB PO DAILY, (Reported) Atorvastatin Calcium (Atorvastatin Calcium), 1 TAB PO HS, (Reported) Dexamethasone (Decadron), 4 TAB PO HS, (Reported) Metoprolol Tartrate (Metoprolol Tartrate), 1 TAB PO BID, (Reported) Verapamil Hcl (Calan Sr), 1 CAP PO DAILY, (Reported) Scheduled PRN Hydrocodone-Acetaminophen (Hydrocodone/Acetaminophen 10-325 mg), 1 TAB PO Q12HP PRN, (Reported) Senna (Senna-Time), 1 TAB PO BIDP PRN, (Reported) Discharge Statement: "Patient was advised to return to the ER or call 911 if any headaches, dizziness, shortness of breath, chest pain, abdominal pain, bleeding, fevers, or worsening of medical condition. Patient was counseled about treatment plan, medications, possible side effects, patientverbalized understanding. All questions were answered to the best of my ability. This discharge took greater then 30 minutes in planning, reviewing documentation, counseling the patient, and discussing with other team members." ASSESSMENT ASSESSMENT Assessment Date of Service: Mar 12, 2025 Billing Provider: DAWIT HASSAN MD Common Visit Codes: 70859-FOD/OBS DISCH DAY >30min DAWIT HASSAN MD Mar 12, 2025 10:49
[2025-03-12 11:37] VITALS: BP 140/74; PULSE 71; TEMP 36.2
[2025-03-12 13:00] VITALS: BP 121/71; PULSE 69; RESP 16; TEMP 98.6; O2SAT 97
--- NOTE | 2025-03-12 23:48 | DVHPN2 ---
Progress Note - Dictate Date Seen: Mar 12, 2025 Medical Necessity Reason Pt with a Central, PICC or Fol: Yes Subjective Patient was seen and evaluated in follow up. Patient has no new complaints at this time. Patient denies any cardiac symptoms. Patient is cardiac stable for discharge. Telemetry reviewed. vital signs Vital Sign Date Time Temp Pulse Resp B/P (MAP) Pulse Ox O2 Delivery O2 Flow Rate FiO2 03/12/25 13:00 98.6 69 16 121/71 (88) 97 98.6 03/12/25 08:00 Room Air* 0 21 Total Intake and Output 03/11/25 03/11/25 03/12/25 15:00 23:00 07:00 Intake Total 1750 ml 1700 ml Balance 1750 ml 1700 ml objective GENERAL: Alert and oriented x 3. No acute distress. EYES: PERRL, EOMI. Anicteric. HENT: Moist mucous membranes. LUNGS: Clear to auscultation bilaterally. CARDIOVASCULAR: Regular rate and rhythm. ABDOMEN: Soft, nontender and nondistended. EXTREMITIES: No edema. NEUROLOGIC: No focal neurological deficits. SKIN: Warm, dry. laboratory and microbiology Laboratory Tests 03/12/25 04:11 Test 03/12/25 04:11 Range/Units Serum Glucose 132 H 74-106 mg/dL Problem List Junctional tachycardia versus SVT. Rule out structural heart disease. Hemorrhagic versus septic shock. Severe anemia status post PRBC transfusion. Dyslipidemia. Hypokalemia. Metastatic breast cancer currently undergoing radiation and chemotherapy. History of tobacco use. Transient ?junctional tachycardia/SVT in 160s, now rate is controlled. Electrolyte imbalance. Assessment/Plan Continued all current supportive medical care. Amiodarone. Metoprolol. IV antibiotics as ordered. Nitro SL. Morphine and Tylenol for pain management. Additional plan as per the hospital course. Dietary Evaluation Review Comments: 1) Initiate Ensure Enlive bid 2) Encourage optimal PO intake 3) Consider soluble fiber supplement d/t constipation 4) Follow-up with oncology and gastroenterology 5) Continue to monitor I&O, labs, and skin integrity Expected Outcomes/Goals: 1) appetite and labs to improve 2) GI symptoms to resolve 3) f/u in 3-5 days Plan discussed with: Patient Is the fluid challenge complet: Yes Date of Reassessment: Mar 08, 2025 Time of Reassessment: 1215 Blood Culture Time: 1025 Time Antibiotics Given: 1030 Systolic BP: 88 Diastolic BP: 38 Blood Pressure Mean: 55 Respiration: 18 Respiratory Effort: Non-Labored Respiratory Pattern: Regular Oxygen Saturation: 100 Pulse Rate: 83 Pulse Location: Radial Pulse Strength: Normal Pulse Assessment Method: Palpation Pulse Rhythm: Regular Capillary Refill: < 3 seconds Heart Sounds: S1 & S2 Breath sounds: Wheezes Skin Moisture: Dry Skin Tugor: WNL Skin Color: Pale CC Plasma Assessment Blood Product Administration S: 19:00 MARTHA MOTA MD Mar 12, 2025 16:32
--- NOTE | 2025-03-13 08:00 | ECG ---
[facility] Test Date: 2025-03-08 Test Time: 10:10:24 Pat Name: FOSTER STEWART Department: ED Room: 0246T A Gender: F Ending Machine Operator: bev : 1940 Requested By: ABEL PUGH Order Number: [id number] Reading MD: Jaylan Esqueda Measurements Intervals [place] Rate: 99 P: 8 [place]: 168 QRS: -44 QRSD: 134 T: -20 QT: 401 QTc: 515 Interpretive Statements Sinus rhythm RBBB and LAFB Electronically Signed On 03-13-2025 21:54:15 PDT by Jaylan Esqueda Please click the below link to view image of tracing.
--- NOTE | 2025-03-14 07:32 | ECG ---
[facility] Test Date: 2025-03-11 Test Time: 09:03:13 Pat Name: FOSTER STEWART Department: Respiratoy Room: 0246T A Gender: F Senior Architectural Designer: JOSH : 1940 Requested By: DAWIT HASSAN Order Number: [id number] Reading MD: Jaylan Esqueda Measurements Intervals [place] Rate: 168 P: -11 SD: 124 QRS: -34 QRSD: 132 T: -29 QT: 328 QTc: 549 Interpretive Statements Wide-QRS tachycardia Right bundle branch block Electronically Signed On 03-20-2025 18:29:30 PDT by Jaylan Esqueda Please click the below link to view image of tracing.
--- NOTE | 2025-03-17 14:47 | ECG ---
[facility] Test Date: 2025-03-09 Test Time: 12:09:38 Pat Name: FOSTER STEWART Department: ED Room: 0246T A Gender: F Replenishment Buyer: lew : 1940 Requested By: ABEL PUGH Order Number: [id number] Reading MD: Jaylan Esqueda Measurements Intervals [place] Rate: 172 P: 0 [place]: 112 QRS: 180 QRSD: 138 T: 93 QT: 319 QTc: 540 Interpretive Statements Wide-QRS tachycardia RBBB and LPFB Baseline wander in lead(s) I,III,aVR,aVL,aVF,V3 Electronically Signed On 03-20-2025 16:52:51 PDT by Jaylan Esqueda Please click the below link to view image of tracing.
--- NOTE | 2025-03-17 14:47 | ECG ---
[facility] Test Date: 2025-03-09 Test Time: 12:54:31 Pat Name: FOSTER STEWART Department: ED Room: 0246T A Gender: F Turret Lathe Tender: SHARIFA : 1940 Requested By: ABEL PUGH Order Number: [id number] Reading MD: Jaylan Esqueda Measurements Intervals [place] Rate: 115 P: 64 [place]: 173 QRS: -37 QRSD: 142 T: 4 QT: 437 QTc: 605 Interpretive Statements Sinus tachycardia Ventricular premature complex Right bundle branch block Electronically Signed On 03-20-2025 16:52:53 PDT by Jaylan Esqueda Please click the below link to view image of tracing.
== END 2025-03-12 15:31 | disposition home or self-care (01) | DRG 808 ==
LOC: ER 10:02 → EDBD 10:02 → OVERFLOW 15:46 → TELE-EAST 03-10 23:53
PROVIDERS: ADMIT Internal Medicine Geriatric Medicine; ATTEND Internal Medicine Geriatric Medicine
PROC: 30233N1 Transfusion of Nonautologous Red Blood Cells into Peripheral Vein, Percutaneous Approach (ICD-10-PCS; principal; 2025-03-08)
DX: D61.1 Drug-induced aplastic anemia (principal); J96.01 Acute respiratory failure with hypoxia; C79.51 Secondary malignant neoplasm of bone; I47.19 Other supraventricular tachycardia; E87.6 Hypokalemia; E78.5 Hyperlipidemia, unspecified; Z96.651 Presence of right artificial knee joint; G93.9 Disorder of brain, unspecified; Z85.3 Personal history of malignant neoplasm of breast; Z87.891 Personal history of nicotine dependence; Z88.5 Allergy status to narcotic agent; Z90.12 Acquired absence of left breast and nipple; Z90.710 Acquired absence of both cervix and uterus; Z92.21 Personal history of antineoplastic chemotherapy; Z98.82 Breast implant status; Z79.82 Long term (current) use of aspirin; I95.89 Other hypotension; T45.1X5A Adverse effect of antineoplastic and immunosuppressive drugs, initial encounter; Y92.89 Other specified places as the place of occurrence of the external cause
CPT/HCPCS: 36415; 70450; 71045; 80053; 80061; 81001; 82962; 83605; 83735; 84132; 84443; 85007; 85014; 85018; 85025; 85027; 85610; 85730; 86850; 86900; 86901; 86920; 87040; 87081; 93005; 93306; 96361; 96365; 96366; 96367; 99291; G0378; J2405